=== PATIENT | female | born 1960 | race Caucasian/White ===

== ENCOUNTER 2016-09-20 15:56 | Emergency (ER) | payer MEDICARE ==
[2016-09-20 16:21] VITALS: BP 121/79
--- NOTE | 2016-09-20 17:00 | UC ---
Skin Complaint HPI - HPI Summary HPI Summary: Worried she has fleas/lice/scabies all over. Feels and sees little black bumps in her skin, is bathing several times per day, sometimes with caustic substances such as H2O2. Sees fleas all over house despite her dog being treated and not infested. Sometimes after she's been in a hot bath for a long time she gets out and sees fleas between her toes. Has seen her primary care provider, other providers, and [facility] start urgent care and feels no one is listening to her or believing her. Fell out of bed on 08/30/16 and sustained large hematoma to R oreilly which resulted in marked swelling and bruising down entire leg. Area is improving and bruising has resolved quite a bit, but is worried there are flea bites around it. - History of Current Complaint Chief Complaint: UCSkin Time Seen by Provider: 09/20/16 16:29 Stated Complaint: ITCHY SKIN Hx Obtained From: Patient Hx Last Menstrual Period: hysterectomy ?: No Onset/Duration: Gradual Onset, Still Present Timing: Constant Onset Severity: Moderate Current Severity: Moderate Character: Pruritus Alleviating: Antihistamines - only minimally helpful Associated Signs & Symptoms: Positive: Negative Related History: Insect Bite/Sting - fleas, scabies, lice - Allergy/Home Medications Allergies/Adverse Reactions: Allergies Allergy/AdvReac Type Severity Reaction Status Date / Time Aripiprazole [From Abilify] AdvReac Severe Dizziness Verified 09/20/16 16:22 Erythromycin AdvReac Severe Diarrhea Verified 09/20/16 16:22 Bupropion [From Wellbutrin] AdvReac Intermediate Hallucinati Verified 09/20/16 16:22 ons Levofloxacin [From Levaquin] AdvReac Intermediate Joint Pain Verified 09/20/16 16:22 Aspirin [From Ecotrin] AdvReac Mild See Comment Verified 09/20/16 16:22 Midazolam [From Versed] AdvReac SEVERE Verified 09/20/16 16:22 AGITATION NSAIDs AdvReac Bleeding Verified 09/20/16 16:22 Home Medications: Home Medications Multiple Vitamins W/ Minerals [Multivitamin] 09/20/16 [History] Review of Systems Constitutional: Negative Skin: Rash, Other - itching, bug sensation Eyes: Negative ENT: Negative Respiratory: Negative Cardiovascular: Negative Gastrointestinal: Negative Genitourinary: Negative Motor: Negative Neurovascular: Negative Musculoskeletal: Negative Neurological: Negative Psychological: Negative All Other Systems Reviewed And Are Negative: Yes PMH/Surg Hx/FS Hx/Imm Hx Endocrine History Of: Denies: Diabetes, Thyroid Disease Cardiovascular History Of: Reports: Hypertension - on meds Denies: Cardiac Disorders, Pacemaker/ICD Respiratory History Of: Denies: COPD, Asthma GI/ History Of: Reports: Gastroesophageal Reflux - gi bleed 2007/[facility] 2007 Denies: Ulcer, Renal Disease Neurological History Of: Reports: Migraine Psychological History Of: Reports: Anxiety, Depression Cancer History Of: Denies: Breast Cancer Other History Of: Negative For: Anticoagulant Therapy - Surgical History Surgical History: Yes Surgery Procedure, Year, and Place: 2006 Hysterectomy. 2-LAPROSCOPIC- ENDOMETRIOSIS. TONSILECTOMY-1968 - Family History Known Family History: Positive: Cardiac Disease, Hypertension, Other - positive anxiety to mother and sister - Social History Lives: Alone Alcohol Use: None Substance Use Type: None Substance Use Comment - Amount & Last Used: hydrocodone Smoking Status (MU): Never Smoked Tobacco Have You Smoked in the Last Year: No - Immunization History Most Recent Influenza Vaccination: season Physical Exam Triage Information Reviewed: Yes Appearance: Well-Appearing, No Pain Distress, Well-Nourished Vital Signs: Initial Vital Signs Temp 96 F 09/20/16 16:16 Pulse 79 09/20/16 16:16 Resp 16 09/20/16 16:16 BP 121/79 09/20/16 16:16 Pulse Ox 98 09/20/16 16:16 Vital Signs Reviewed: Yes Eye Exam: Normal Eyes: Positive: Conjunctiva Clear ENT Exam: Normal ENT: Positive: Normal ENT inspection, Hearing grossly normal, Pharynx normal, TMs normal Dental Exam: Normal Neck exam: Normal Neck: Positive: Supple, Nontender, No Lymphadenopathy Respiratory Exam: Normal Respiratory: Positive: Chest non-tender, Lungs clear, Normal breath sounds, No respiratory distress, No accessory muscle use Cardiovascular Exam: Normal Cardiovascular: Positive: RRR, No Murmur Musculoskeletal Exam: Normal Neurological Exam: Normal Psychological Exam: Normal Skin Exam: Other - multiple small excoriations, no papules, erythema, streaking , or drainage. Skin: Positive: significant lesion(s) - R oreilly resolving hematoma with linear scab in the middle of it; surrounded by post-inflammatory hyperpigmentation. Pt indicates seeing flea bites around it, no papules noted. Course/Dx - Diagnoses Provider Diagnoses: delusional parasitosis. pruritis. resolving hematoma R oreilly Discharge - Discharge Plan Condition: Stable Disposition: HOME Prescriptions: Permethrin [Elimite] 5 % TOPICAL BEDTIME #1 bottle Patient Education Materials: Itchy Skin (ED) Referrals: Linn Hui MD [Primary Care Provider] - Additional Instructions: As we discussed, I do not think you have scabies, lice, or any other infestation. You are exhibiting signs and symptoms of a fairly common disorder that originates in the brain, rather than the skin. We do not yet know the best way to treat this, other than to try and keep your itching at bay. I believe your sensation of itching and bites and crawling things has been sort of " turned up all the way" in your brain, and your normal human response of wanting to get them off is taking over. This is just as real as a pain disorder or someone whose nerves cannot move their muscles normally. Please discuss this with Dr. Hui further.
== END 2016-09-20 17:04 | disposition home or self-care (01) ==
LOC: UCEAST 15:56
DX: F22 Delusional disorders (principal); L29.9 Pruritus, unspecified; S80.11XD Contusion of right lower leg, subsequent encounter; W06.XXXD Fall from bed, subsequent encounter; I10 Essential (primary) hypertension; Z88.1 Allergy status to other antibiotic agents; Z88.6 Allergy status to analgesic agent; Z88.8 Allergy status to other drugs, medicaments and biological substances
CPT/HCPCS: 99212; G0463

== ENCOUNTER 2016-12-13 13:09 | Emergency (ER) | payer SELFPAY ==
[2016-12-13 14:09] VITALS: BP 143/86
--- NOTE | 2016-12-13 14:29 | UC ---
Back Pain HPI - HPI Summary HPI Summary: muscular pain in right lower back--after stretching to prevent an elder from falling - History of Current Complaint Chief Complaint: UCBackPain Stated Complaint: BACK INJURY Time Seen by Provider: 12/13/16 14:14 Hx Obtained From: Patient Hx Last Menstrual Period: HYSTERECTOMY ?: No Onset/Duration: Sudden Onset, Lasting Days - 2, Still Present Timing: Constant Severity Initially: Moderate Severity Currently: Moderate Pain Intensity: 6 Pain Scale Used: 0-10 Numeric Back Pain: Is Discrete @ - right side of lumar back Character: Aching, Spasmodic, Stiffness Aggravating: Movement, Lifting Alleviating: Nothing Associated Signs And Symptoms: Positive: Negative Related History: Previous Back Injury - Allergies/Home Medications Allergies/Adverse Reactions: Allergies Allergy/AdvReac Type Severity Reaction Status Date / Time Aripiprazole [From Abilify] AdvReac Severe Dizziness Verified 09/20/16 16:22 Erythromycin AdvReac Severe Diarrhea Verified 09/20/16 16:22 Bupropion [From Wellbutrin] AdvReac Intermediate Hallucinati Verified 09/20/16 16:22 ons Levofloxacin [From Levaquin] AdvReac Intermediate Joint Pain Verified 09/20/16 16:22 Aspirin [From Ecotrin] AdvReac Mild See Comment Verified 09/20/16 16:22 Midazolam [From Versed] AdvReac SEVERE Verified 09/20/16 16:22 AGITATION NSAIDs AdvReac Bleeding Verified 09/20/16 16:22 PMH/Surg Hx/FS Hx/Imm Hx Previously Healthy: No Endocrine History Of: Denies: Diabetes, Thyroid Disease Cardiovascular History Of: Reports: Hypertension - on meds Denies: Cardiac Disorders, Pacemaker/ICD Respiratory History Of: Denies: COPD, Asthma GI/ History Of: Reports: Gastroesophageal Reflux - gi bleed 2007/[facility] 2007 Denies: Ulcer, Renal Disease Neurological History Of: Reports: Migraine Psychological History Of: Reports: Anxiety, Depression Cancer History Of: Denies: Breast Cancer Other History Of: Negative For: Anticoagulant Therapy - Surgical History Surgical History: Yes Surgery Procedure, Year, and Place: 2005 Hysterectomy. 2-LAPROSCOPIC- ENDOMETRIOSIS. TONSILECTOMY-1968 - Family History Known Family History: Positive: Cardiac Disease, Hypertension, Other - positive anxiety to mother and sister - Social History Occupation: Employed Part-time Lives: Alone Alcohol Use: None Substance Use Type: None Substance Use Comment - Amount & Last Used: hydrocodone Smoking Status (MU): Never Smoked Tobacco Have You Smoked in the Last Year: No - Immunization History Most Recent Influenza Vaccination: season Review of Systems Constitutional: Negative Skin: Negative Eyes: Negative ENT: Negative Respiratory: Negative Cardiovascular: Negative Gastrointestinal: Negative Genitourinary: Negative Motor: Negative Neurovascular: Negative Musculoskeletal: Myalgia - right side of lower back Neurological: Negative Psychological: Negative All Other Systems Reviewed And Are Negative: Yes Physical Exam Triage Information Reviewed: Yes Appearance: Well-Appearing, No Pain Distress, Well-Nourished Vital Signs: Initial Vital Signs Temp 98.8 F 12/13/16 14:06 Pulse 99 12/13/16 14:06 Resp 16 12/13/16 14:06 BP 143/86 12/13/16 14:06 Pulse Ox 97 12/13/16 14:06 Vital Signs Reviewed: Yes Eye Exam: Normal Eyes: Positive: Conjunctiva Clear ENT Exam: Normal ENT: Positive: Normal ENT inspection, Hearing grossly normal. Negative: Nasal congestion, Nasal drainage, Trismus, Muffled/hoarse voice Neck exam: Normal Neck: Positive: Supple, Nontender Respiratory Exam: Normal Respiratory: Positive: Chest non-tender, Normal breath sounds, No respiratory distress, No accessory muscle use Cardiovascular Exam: Normal Cardiovascular: Positive: RRR, Pulses Normal, Brisk Capillary Refill Abdominal Exam: Normal Abdomen Description: Positive: Nontender, No Organomegaly, Soft Bowel Sounds: Positive: Present Musculoskeletal Exam: Normal Musculoskeletal: Positive: Strength Intact, ROM Intact, No Edema Neurological Exam: Normal Neurological: Positive: Alert, Muscle Tone Normal Psychological Exam: Normal Skin Exam: Normal Back Pain Course/Dx - Course Course Of Treatment: back exercise, pt has clonopin zanaflex and flexeril at home, tylenol, follow with pt or pcp - Differential Dx/Diagnosis Differential Diagnosis/HQI/PQRI: Fracture, Strain, Sprain Provider Diagnoses: Lumar muscle strain Discharge - Discharge Plan Condition: Stable Disposition: HOME Patient Education Materials: Acetaminophen (By mouth), Low Back Strain (ED), Core Strengthening Exercises (GEN), Lower Back Exercises (ED) Referrals: Linn Hui MD [Primary Care Provider] - 3 Days
== END 2016-12-13 14:40 | disposition home or self-care (01) ==
LOC: UCEAST 13:09
DX: S39.012A Strain of muscle, fascia and tendon of lower back, initial encounter (principal); X50.0XXA Overexertion from strenuous movement or load, initial encounter; I10 Essential (primary) hypertension; K21.9 Gastro-esophageal reflux disease without esophagitis; G43.909 Migraine, unspecified, not intractable, without status migrainosus; F41.9 Anxiety disorder, unspecified; F32.9 Major depressive disorder, single episode, unspecified; Z88.3 Allergy status to other anti-infective agents; Z88.6 Allergy status to analgesic agent
CPT/HCPCS: 99212; G0463

== ENCOUNTER 2017-05-23 11:54 | Emergency (ER) | payer MEDICARE ==
[2017-05-23 13:31] VITALS: BP 133/94
--- NOTE | 2017-05-23 14:00 | UC ---
Skin Complaint HPI - HPI Summary HPI Summary: 56 y/o female presents to the urgent care c/o waking up in the middle of the night with bug bites in her arms and back of her LF leg 2 days ago. That day she was at her friends house who told her she now has bed bugs. She states she also has had flees in her house 4X in the past. Now she has hives that itch a lot. Pt has been taking Benadryl PO. Pt denies fever, SOB, chest pain, N/V/D. - History of Current Complaint Chief Complaint: UCRash Time Seen by Provider: 05/23/17 13:31 Stated Complaint: RASH Hx Obtained From: Patient Hx Last Menstrual Period: HYSTERECTOMY ?: No Onset/Duration: Sudden Onset, Lasting Days - 2 days Skin Exposure Onset/Duration: Days Ago - 2 Timing: Constant Onset Severity: Moderate Current Severity: Moderate Pain Intensity: 0 Pain Scale Used: 0-10 Numeric Location: Discrete - B/l arms and back of her LF knee Character: Swelling, Pruritus, Redness Alleviating: OTC Meds, Antihistamines - benadryl Associated Signs & Symptoms: Negative: Nausea, Vomiting, Numbness, Fever, Chills , Tenderness, Red Streaks Related History: Possible Reaction to: Insect - Allergy/Home Medications Allergies/Adverse Reactions: Allergies Allergy/AdvReac Type Severity Reaction Status Date / Time Aripiprazole [From Abilify] AdvReac Severe Dizziness Verified 05/23/17 13:31 Erythromycin AdvReac Severe Diarrhea Verified 05/23/17 13:31 Bupropion [From Wellbutrin] AdvReac Intermediate Hallucinati Verified 05/23/17 13:31 ons Levofloxacin [From Levaquin] AdvReac Intermediate Joint Pain Verified 05/23/17 13:31 Aspirin [From Ecotrin] AdvReac Mild See Comment Verified 05/23/17 13:31 Midazolam [From Versed] AdvReac SEVERE Verified 05/23/17 13:31 AGITATION NSAIDs AdvReac Bleeding Verified 05/23/17 13:31 pepper Allergy Hives/Diff. Uncoded 05/23/17 13:32 Breathing/I tching Review of Systems Constitutional: Negative Skin: Rash - red with swelling on both arms and back of LF knee Eyes: Negative ENT: Negative Respiratory: Negative Cardiovascular: Negative Gastrointestinal: Negative Genitourinary: Negative Motor: Negative Neurovascular: Negative Musculoskeletal: Negative Neurological: Negative Psychological: Negative Is Patient Immunocompromised?: No All Other Systems Reviewed And Are Negative: Yes PMH/Surg Hx/FS Hx/Imm Hx Previously Healthy: Yes Cardiovascular History: Hypertension GI/ History: Gastroesophageal Reflux Neurological History: Migraine Psychological History: Bipolar Disorder Other History Of: Negative For: Anticoagulant Therapy - Surgical History Surgical History: Yes Surgery Procedure, Year, and Place: 2006 Hysterectomy. 2-LAPROSCOPIC- ENDOMETRIOSIS. TONSILECTOMY-1968 - Family History Known Family History: Positive: Cardiac Disease, Hypertension Family History: anxiety, COPD - Social History Occupation: Employed Full-time Lives: With Family Alcohol Use: None Substance Use Type: None Substance Use Comment - Amount & Last Used: hydrocodone Smoking Status (MU): Never Smoked Tobacco Have You Smoked in the Last Year: No - Immunization History Most Recent Influenza Vaccination: Physical Exam Triage Information Reviewed: Yes Appearance: Well-Appearing, No Pain Distress, Well-Nourished, Obese Vital Signs: Initial Vital Signs Temp 97.9 F 05/23/17 13:27 Pulse 101 05/23/17 13:27 Resp 16 05/23/17 13:27 BP 133/94 05/23/17 13:27 Pulse Ox 97 05/23/17 13:27 Vital Signs Reviewed: Yes Eye Exam: Normal Eyes: Positive: Conjunctiva Clear - PERRLA, EOMI ENT Exam: Normal ENT: Positive: Normal ENT inspection, Hearing grossly normal, Pharynx normal, TMs normal Neck exam: Normal Neck: Positive: Supple, Nontender, No Lymphadenopathy Respiratory Exam: Normal Respiratory: Positive: Chest non-tender, Lungs clear, Normal breath sounds Cardiovascular Exam: Normal Cardiovascular: Positive: RRR, No Murmur, Pulses Normal, Brisk Capillary Refill Abdominal Exam: Normal Abdomen Description: Positive: Nontender, No Organomegaly, Soft. Negative: CVA Tenderness (R), CVA Tenderness (L) Bowel Sounds: Positive: Present Musculoskeletal Exam: Normal Musculoskeletal: Positive: Strength Intact, ROM Intact, No Edema Neurological Exam: Normal Psychological Exam: Normal Skin: Positive: rashes - B/L arms with irregular erythematous swollen papules about 1-2mm is siize arrange in an irregular linear pattern. non tender to palpation. similar eruption on back of LF knee. Course/Dx - Course Course Of Treatment: 56 y/o female presents to the urgent care c/o waking up in the middle of the night with bug bites in her arms and back of her LF leg 2 days ago. That day she was in her friends house who told her she now has bed bugs. She states she also has had flees in her house 4X in the past. Now she has hives that itch a lot. Pt has been taking Benadryl PO. Pt denies fever, SOB , chest pain, N/V/D. HX obtained. On examination most likely bed bugs. Pt advised to take Hydroxyzine PO 25mg PO she has at home to allaviate pruritus and Rx Triamcinolone topical cream for affected areas. Educated on Bed bugs and given information in how to erradicated them from her house. Advised If symptoms do not improve or worsen please return to the urgent cares or your PCP for further evaluation and treatment. Pt understood and agreed with plan of care. - Differential Diagnoses - Skin Complaint Differential Diagnoses: Allergic Reaction, Eczema, Local Allergic Reaction, Lymphadenitis, Scabies, Tick Born Illness, Tinea, Urticaria, Other - Bed bugs - Diagnoses Provider Diagnoses: 1- Acute rash Discharge - Discharge Plan Condition: Stable Disposition: HOME Prescriptions: Triamcinolone 0.1% CREAM(NF) [Kenalog Cream 0.1%(NF)] 1 applic TOPICAL BID #1 tube Patient Education Materials: Bed Bugs (ED) Referrals: Linn Hui MD [Primary Care Provider] - If Needed Additional Instructions: 1- Please continue taking Hydroxyzine PO 25mg PO q6-8hrs prn you have at home to help with pruritus 2- Apply Triamcinolone topical creas as directed on affected areas. 3- If symptoms do not improve or worsen please return to the urgent cares or your PCP for further evaluation and treatment What are bedbugs? Bedbugs are small bugs that do not fly . They are found all over the world. Bedbugs can live in hotels, houses, and other places where people rest and sleep. They can live in your mattress, your clothes, the gu, and other parts of your house. Most often, they bite you while you are sleeping or resting. If you have bedbugs in your home, you might not be able to see them. They are very small and hide during the day. Bedbugs do not spread diseases in people. What do bedbug bites look like? Bedbug bites are small, red and swollen areas of the skin that are often: -In a row or a line -On parts of the body not usually covered by clothes, such as the face, neck, arms, and hands -Very itchy Most people don't feel it when they get bitten. They might notice the bites in the morning or after a day or 2. Bedbug bites can take 3 to 6 weeks to heal. They can get infected if you scratch them a lot. Is there a test to tell if I have bedbug bites? No. There is no test. But your doctor or nurse might suspect that your bites are from bedbugs when he or she looks at your skin. Other types of bugs and some diseases can also cause red bumps on the skin that look like bedbug bites. The only way to know for sure if you have bedbugs in your home is to catch one. Your doctor or nurse can then inspect the insect. They can tell if it is a bedbug or another type of bug. Is there anything I can do on my own to help my bites feel better? Yes. To help your bites feel better and heal faster, you can: -Keep the skin clean and dry -Try not to scratch the bites -Use an anti-itch lotion or cream to help with the itching Should I see a doctor or nurse? See your doctor or nurse right away if the bites: -Get redder -Get more swollen -Start having pus come out of them If any of these things happen, your bites might be infected. Your doctor or nurse might prescribe medicine for the infection. When you first find out you have bedbugs in your home, you might feel very worried or upset. If you feel this way, talk to your doctor about what you can do. What should I do about the bedbugs in my home? You will need to get rid of the bedbugs in your home so you do not get any more bites. To start, you can: -Vacuum your home -Wash your clothes and bedding, and dry them in a dryer that is on the hottest setting -Clean up your home Then, you or your landlord should call a pest control service. The workers might use a chemical in your home to get rid of the bedbugs. You should not try to use any chemicals yourself. Another way that pest control services can get rid of bedbugs is a special type of heat treatment. This raises the temperature in your home, which kills the bedbugs. If you want to get rid of some of your clothes or things, do not give them to other people. The bedbugs could still be in them. You do not want to spread bedbugs to other people. Can bedbug bites be prevented? The only way to prevent bites is by getting
== END 2017-05-23 14:10 | disposition home or self-care (01) ==
LOC: UCEAST 11:54
DX: R21 Rash and other nonspecific skin eruption (principal); I10 Essential (primary) hypertension; K21.9 Gastro-esophageal reflux disease without esophagitis; G43.909 Migraine, unspecified, not intractable, without status migrainosus; E66.9 Obesity, unspecified; F31.9 Bipolar disorder, unspecified; Z90.710 Acquired absence of both cervix and uterus; Z88.6 Allergy status to analgesic agent; Z88.1 Allergy status to other antibiotic agents; Z88.8 Allergy status to other drugs, medicaments and biological substances
CPT/HCPCS: 99212; G0463

== ENCOUNTER 2017-08-08 15:15 | Emergency (ER) | payer MEDICARE ==
[2017-08-08 15:44] VITALS: BP 117/85
--- NOTE | 2017-08-08 18:20 | ED ---
Wilton Rodríguez Stephanie, scribed for Cresencio Tian MD on 08/08/17 at 1820 . Skin Complaint - HPI Summary HPI Summary: Pt is a 56 y/o F with itching flea bites that began 2 years ago. Pt thought the fleas came from her dog but the dog was evaluated by a program specialist and had no fleas. She complains of seeing fleas in her apartment and on increasingly itching bites over the past week. Pt complains of bites on her abdomen, upper back and neck and notes that the bumps on her back have been present for 35 years. She was taking Hydroxyzine and then switched to Benadryl. - History of Current Complaint Chief Complaint: UCRash Time Seen by Provider: 08/08/17 16:21 Stated Complaint: RASH Hx Obtained From: Patient Hx Last Menstrual Period: HYSTERECTOMY Onset/Duration: Started Weeks Ago - 2 years, Still Present Timing: Constant Current Severity: Moderate Skin Location: Discrete - upper extremity, back, and neck, Neck - posterior, Abdomen Aggravating Symptom(s): Nothing Alleviating Symptom(s): Nothing - Allergy/Home Medications Allergies/Adverse Reactions: Allergies Allergy/AdvReac Type Severity Reaction Status Date / Time Aripiprazole [From Abilify] AdvReac Severe Dizziness Verified 08/08/17 15:44 Erythromycin AdvReac Severe Diarrhea Verified 08/08/17 15:44 Bupropion [From Wellbutrin] AdvReac Intermediate Hallucinati Verified 08/08/17 15:44 ons Levofloxacin [From Levaquin] AdvReac Intermediate Joint Pain Verified 08/08/17 15:44 Aspirin [From Ecotrin] AdvReac Mild See Comment Verified 08/08/17 15:44 Midazolam [From Versed] AdvReac SEVERE Verified 08/08/17 15:44 AGITATION NSAIDs AdvReac Bleeding Verified 08/08/17 15:44 pepper Allergy Hives/Diff. Uncoded 08/08/17 15:44 Breathing/I tching PMH/Surg Hx/FS Hx/Imm Hx Endocrine/Hematology History: Denies: Hx Anticoagulant Therapy, Hx Diabetes, Hx Thyroid Disease Cardiovascular History: Reports: Hx Hypertension - on meds Denies: Hx Pacemaker/ICD Respiratory History: Reports: Hx Sleep Apnea Denies: Hx Asthma, Hx Chronic Obstructive Pulmonary Disease (COPD) GI History: Reports: Hx Irritable Bowel, Other GI Disorders - gi bleed Denies: Hx Ulcer History: Denies: Hx Renal Disease Musculoskeletal History: Reports: Hx Arthritis - osteo, Hx Scoliosis Sensory History: Reports: Hx Contacts or Glasses Denies: Hx Hearing Aid Opthamlomology History: Reports: Hx Contacts or Glasses Neurological History: Reports: Hx Headaches, Hx Migraine, Other Neuro Impairments/Disorders - PAIN CLINIC INJECTIONS Psychiatric History: Reports: Hx Anxiety, Hx Depression, Hx Panic Disorder, Hx Community Mental Health Tx, Hx Substance Abuse - NSIADS for pain, Other Psychiatric Issues/Disorders - 2005 rehab-tramadol & alcohol - Cancer History Hx Chemotherapy: No Hx Radiation Therapy: No - Surgical History Surgery Procedure, Year, and Place: 2005 Hysterectomy. 2-LAPROSCOPIC- ENDOMETRIOSIS. TONSILECTOMY-1968 Infectious Disease History: No Infectious Disease History: Denies: Hx Clostridium Difficile, Hx Hepatitis, Hx Human Immunodeficiency Virus (HIV), Hx of Known/Suspected MRSA, Hx Shingles, Hx Tuberculosis, Hx Known/ Suspected VRE, Hx Known/Suspected VRSA, History Other Infectious Disease, Traveled Outside the [place] in Last 30 Days - Family History Known Family History: Positive: Cardiac Disease, Hypertension, Other - positive anxiety to mother and sister Family History: anxiety, COPD - Social History Alcohol Use: None Hx Substance Use: No Substance Use Type: Reports: None Substance Use Comment - Amount & Last Used: hydrocodone Hx Tobacco Use: No Smoking Status (MU): Never Smoked Tobacco Have You Smoked in the Last Year: No Review of Systems Positive: Other - skin itching. Negative: Fever Positive: Other - punctate erythematous areas All Other Systems Reviewed And Are Negative: Yes Physical Exam - Summary Physical Exam Summary: General: well-appearing, no pain distress Skin: warm, punctate erythematous areas thinly scattered on forearms, abdomen and back. Signs of excoriation. , dry Head: normal Eyes: EOMI, MELISSA ENT: normal Neck: supple, nontender Respiratory: CTA, breath sounds present Cardiovascular: RRR Abdomen: soft, nontender Bowel: present Musculoskeletal: normal, strength/ROM intact Neurological: normal, sensory/motor intact, A&O x3 Psychological: affect/mood appropriate Triage Information Reviewed: Yes Vital Signs On Initial Exam: Initial Vitals Temp Pulse Resp BP Pulse Ox 97.7 F 106 18 117/85 99 08/08/17 15:36 08/08/17 15:36 08/08/17 15:36 08/08/17 15:36 08/08/17 15:36 Vital Signs Reviewed: Yes Diagnostics - Vital Signs Vital Signs Temp Pulse Resp BP Pulse Ox 08/08/17 15:36 97.7 F 106 18 117/85 99 - Laboratory Lab Statement: Any lab studies that have been ordered have been reviewed, and results considered in the medical decision making process. Course/Dx - Diagnoses Provider Diagnoses: Pruritic rash Discharge - Discharge Plan Condition: Stable Disposition: HOME Prescriptions: hydrOXYzine HCL TAB* [Atarax 25 MG TAB*] 25 mg PO QID PRN #30 tab PRN Reason: Itching Methylprednisolone [Medrol Dosepak 4 MG*] 4 mg PO .SEE PHILIP INSTRUCTION #1 philip Triamcinolone 0.1% CREAM (NF) [Kenalog 0.1% Cream (NF)] 1 applic .SEE ORDER BID PRN #1 tube PRN Reason: Itching Patient Education Materials: Acute Rash (ED) Referrals: Linn Hui MD [Medical Doctor] - Additional Instructions: FOLLOW UP WITH YOUR DOCTOR. GET RECHECKED FOR ANY WORSENING OF YOUR CONDITION OR QUESTIONS OR CONCERNS. The documentation as recorded by the Wilton betancourt Stephanie accurately reflects the service I personally performed and the decisions made by me, Cresencio Tian MD.
== END 2017-08-08 17:07 | disposition home or self-care (01) ==
LOC: UCEAST 15:15
DX: L29.9 Pruritus, unspecified (principal)
CPT/HCPCS: 99212; G0463

== ENCOUNTER 2017-11-27 12:56 | Emergency (ER) | payer MEDICARE ==
[2017-11-27 13:10] VITALS: BP 140/96
--- NOTE | 2017-11-27 14:21 | UC ---
Back Pain HPI - HPI Summary HPI Summary: Acute exacerbation of chronic back pain---has had pain for 2 weeks---no numbness or tingling in extremities - History of Current Complaint Hx Obtained From: Patient Hx Last Menstrual Period: HYSTERECTOMY Onset/Duration: Sudden Onset, Lasting Weeks - 2, Still Present Timing: Constant Severity Initially: Moderate Severity Currently: Moderate Pain Intensity: 6 Pain Scale Used: 0-10 Numeric Back Pain: Is Diffuse Character: Spasmodic, Stiffness Aggravating Factor(s): Movement, Lifting, Bending Alleviating Factor(s): Nothing Associated Signs And Symptoms: Positive: Negative <Yadira Evans - Last Filed: 11/27/17 14:42> <Betsy Randhawa - Last Filed: 11/27/17 18:04> - History of Current Complaint Chief Complaint: UCBackPain Stated Complaint: BACK PAIN Time Seen by Provider: 11/27/17 14:06 - Allergies/Home Medications Allergies/Adverse Reactions: Allergies Allergy/AdvReac Type Severity Reaction Status Date / Time aripiprazole [From Abilify] Allergy Dizziness Verified 11/27/17 13:13 aspirin Allergy Bleeding Verified 11/27/17 13:13 bupropion [From Wellbutrin] Allergy Hallucinati Verified 11/27/17 13:13 ons erythromycin base Allergy Diarrhea Verified 11/27/17 13:13 levofloxacin [From Levaquin] Allergy Joint Pain Verified 11/27/17 13:13 midazolam [From Versed] Allergy See Comment Verified 11/27/17 13:13 NSAIDS (Non-Steroidal Allergy Bleeding Verified 11/27/17 13:13 Anti-Inflamma pepper Allergy Difficulty Verified 11/27/17 13:13 Breathing pepper Allergy Hives/Diff. Uncoded 11/27/17 13:13 Breathing/I tching PMH/Surg Hx/FS Hx/Imm Hx Previously Healthy: No - chronic back pain GI/ History: Gastroesophageal Reflux Psychological History: Bipolar Disorder Other History Of: Negative For: Anticoagulant Therapy - Surgical History Surgical History: Yes Surgery Procedure, Year, and Place: 2005 Hysterectomy. 2-LAPROSCOPIC- ENDOMETRIOSIS. TONSILECTOMY-1968 - Family History Known Family History: Positive: Cardiac Disease, Hypertension, Other - positive anxiety to mother and sister Family History: anxiety, COPD - Social History Occupation: Disabled Lives: Alone Alcohol Use: None Substance Use Type: None Substance Use Comment - Amount & Last Used: hydrocodone Smoking Status (MU): Never Smoked Tobacco Have You Smoked in the Last Year: No - Immunization History Most Recent Influenza Vaccination: season <Yadira Evans - Last Filed: 11/27/17 14:42> Review of Systems Constitutional: Negative Skin: Negative Eyes: Negative ENT: Negative Respiratory: Negative Cardiovascular: Negative Gastrointestinal: Negative Genitourinary: Negative Motor: Negative Neurovascular: Negative Musculoskeletal: Arthralgia, Myalgia - pain Neurological: Negative Psychological: Negative Is Patient Immunocompromised?: No All Other Systems Reviewed And Are Negative: Yes <Yadira Evans - Last Filed: 11/27/17 14:42> Physical Exam Triage Information Reviewed: Yes Appearance: Well-Appearing, No Pain Distress, Obese Vital Signs: Initial Vital Signs Temp 97.8 F 11/27/17 13:03 Pulse 103 11/27/17 13:03 Resp 18 11/27/17 13:03 BP 140/96 11/27/17 13:03 Pulse Ox 97 11/27/17 13:03 Vital Signs Reviewed: Yes Eye Exam: Normal Eyes: Positive: Conjunctiva Clear ENT Exam: Normal ENT: Positive: Normal ENT inspection, Hearing grossly normal, Pharynx normal. Negative: Nasal congestion, Trismus, Muffled voice, Hoarse voice, Dental tenderness, Sinus tenderness Dental Exam: Normal Neck exam: Normal Neck: Positive: Supple, Nontender, No Lymphadenopathy Respiratory Exam: Normal Respiratory: Positive: Chest non-tender, Lungs clear, No accessory muscle use Cardiovascular Exam: Normal Cardiovascular: Positive: Pulses Normal, Brisk Capillary Refill Musculoskeletal Exam: Normal Musculoskeletal: Positive: Strength Intact, ROM Intact, No Edema Neurological Exam: Normal Neurological: Positive: Alert, Muscle Tone Normal Psychological Exam: Normal Skin Exam: Normal <Yadira Evans - Last Filed: 11/27/17 14:42> Vital Signs: Initial Vital Signs Temp 97.8 F 11/27/17 13:03 Pulse 103 11/27/17 13:03 Resp 18 11/27/17 13:03 BP 140/96 11/27/17 13:03 Pulse Ox 97 11/27/17 13:03 <Betsy Randhawa - Last Filed: 11/27/17 18:04> Back Pain Course/Dx - Course Course Of Treatment: physical therapy referral, medrol dose back, follow with pcp - Differential Dx/Diagnosis Provider Diagnoses: elevated blood pressure with dx of hypertension, acute on chronic back pain, muscle spasm <Yadira Evans - Last Filed: 11/27/17 14:42> Discharge - Sign-Out/Discharge Documenting (check all that apply): Discharge - Billing Disposition and Condition Condition: STABLE Disposition: HOME <Yadira Evans - Last Filed: 11/27/17 14:42> - Billing Disposition and Condition Condition: STABLE Disposition: HOME <Betsy Randhawa - Last Filed: 11/27/17 18:04> - Discharge Plan Condition: Stable Disposition: HOME Prescriptions: methylPREDNISolone [Medrol] 4 mg PO .SEE PHILIP INSTRUCTION #1 philip Patient Education Materials: Hypertension (ED), Muscle Spasm (ED), Chronic Back Pain (ED), Core Strengthening Exercises (GEN) Referrals: [facility] [place] PHYSICIAN REFERRAL [Outside] - 1 Week Attestation Statement User Type: Provider - I was available for consult. This patient was seen by the CHARMAINE. The patient was not presented to, seen by, or examined by me. Tabatha <Betsy Randhawa - Last Filed: 11/27/17 18:04>
== END 2017-11-27 14:50 | disposition home or self-care (01) ==
LOC: UCEAST 12:56
DX: M54.9 Dorsalgia, unspecified (principal); G89.29 Other chronic pain; R03.0 Elevated blood-pressure reading, without diagnosis of hypertension; Z88.6 Allergy status to analgesic agent; Z88.3 Allergy status to other anti-infective agents; Z88.8 Allergy status to other drugs, medicaments and biological substances
CPT/HCPCS: 99212; G0463

== ENCOUNTER 2017-12-05 19:47 | Emergency (ER) | payer MEDICARE ==
[2017-12-05 19:56] VITALS: BP 152/96
[2017-12-05] MEDS ORDERED: Cyclobenzaprine TAB* 10 MG PO ONE (20:11)
[2017-12-05] MEDS ORDERED: traMADol TAB* 50 MG PO ONE (20:11)
--- NOTE | 2017-12-05 20:43 | ED ---
Kamar Rodríguez Julia, scribed for Teodoro Coto MD on 12/05/17 at 1959 . Back Pain - HPI Summary HPI Summary: This patient is a 57 year old F presenting to [facility] with a chief complaint of constant generalized back pain radiating into pelvis and legs for the past two weeks after lifting box off a shelf. Patient reports lower extremity weakness. Patient denies urinary symptoms. The patient rates the pain 6/10 in severity. Symptoms aggravated by reaching up and walking. Pt was seen in urgent care a week ago for similar symptoms but has not improved since then.Pt was given Medrol pack. Pt has hx of back pain at baseline. Pt is seen by Dr. Hui. - History of Current Complaint Chief Complaint: EDBackInjuryPain Stated Complaint: BACK PAIN Time Seen by Provider: 12/05/17 19:57 Hx Obtained From: Patient Hx Last Menstrual Period: HYSTERECTOMY Onset/Duration: Lasting Weeks, Still Present Onset/Duration: Started Weeks Ago Back Pain Location: Is Diffuse Pain Intensity: 6 Pain Scale Used: 0-10 Numeric Aggravating Symptom(s): Lifting, Walking Related History: Similar Episode Dx As - chronic back pain - Allergies/Home Medications Allergies/Adverse Reactions: Allergies Allergy/AdvReac Type Severity Reaction Status Date / Time aripiprazole [From Abilify] Allergy Dizziness Verified 11/27/17 13:13 aspirin Allergy Bleeding Verified 11/27/17 13:13 bupropion [From Wellbutrin] Allergy Hallucinati Verified 11/27/17 13:13 ons erythromycin base Allergy Diarrhea Verified 11/27/17 13:13 levofloxacin [From Levaquin] Allergy Joint Pain Verified 11/27/17 13:13 midazolam [From Versed] Allergy See Comment Verified 11/27/17 13:13 NSAIDS (Non-Steroidal Allergy Bleeding Verified 11/27/17 13:13 Anti-Inflamma pepper Allergy Difficulty Verified 11/27/17 13:13 Breathing pepper Allergy Hives/Diff. Uncoded 11/27/17 13:13 Breathing/I tching PMH/Surg Hx/FS Hx/Imm Hx Endocrine/Hematology History: Denies: Hx Anticoagulant Therapy, Hx Diabetes, Hx Thyroid Disease Cardiovascular History: Reports: Hx Hypertension - on meds Denies: Hx Pacemaker/ICD Respiratory History: Reports: Hx Sleep Apnea Denies: Hx Asthma, Hx Chronic Obstructive Pulmonary Disease (COPD) GI History: Reports: Hx Irritable Bowel, Other GI Disorders - gi bleed Denies: Hx Ulcer History: Denies: Hx Renal Disease Musculoskeletal History: Reports: Hx Arthritis - osteo, Hx Back Problems, Hx Scoliosis Sensory History: Reports: Hx Contacts or Glasses Denies: Hx Hearing Aid Opthamlomology History: Reports: Hx Contacts or Glasses Neurological History: Reports: Hx Headaches, Hx Migraine, Other Neuro Impairments/Disorders - PAIN CLINIC INJECTIONS Psychiatric History: Reports: Hx Anxiety, Hx Depression, Hx Panic Disorder, Hx Community Mental Health Tx, Hx Substance Abuse - NSIADS for pain, Other Psychiatric Issues/Disorders - 2005 rehab-tramadol & alcohol - Cancer History Hx Chemotherapy: No Hx Radiation Therapy: No - Surgical History Surgery Procedure, Year, and Place: 2005 Hysterectomy. 2-LAPROSCOPIC- ENDOMETRIOSIS. TONSILECTOMY-1968 Infectious Disease History: No Infectious Disease History: Denies: Hx Clostridium Difficile, Hx Hepatitis, Hx Human Immunodeficiency Virus (HIV), Hx of Known/Suspected MRSA, Hx Shingles, Hx Tuberculosis, Hx Known/ Suspected VRE, Hx Known/Suspected VRSA, History Other Infectious Disease, Traveled Outside the [place] in Last 30 Days - Family History Known Family History: Positive: Cardiac Disease, Hypertension, Other - positive anxiety to mother and sister Family History: anxiety, COPD - Social History Alcohol Use: None Hx Substance Use: No Substance Use Type: Reports: None Substance Use Comment - Amount & Last Used: hydrocodone Hx Tobacco Use: No Smoking Status (MU): Never Smoked Tobacco Have You Smoked in the Last Year: No Review of Systems Positive: no symptoms reported Positive: Myalgia All Other Systems Reviewed And Are Negative: Yes Physical Exam - Summary Physical Exam Summary: VITAL SIGNS: Reviewed. GENERAL: Patient is a well-developed and nourished female who is lying comfortable in the stretcher. Patient is not in any acute respiratory distress. HEAD AND FACE: No signs of trauma. No ecchymosis, hematomas or skull depressions. No sinus tenderness. EYES: PERRLA, EOMI x 2, No injected conjunctiva, no nystagmus. EARS: Hearing grossly intact. Ear canals and tympanic membranes are within normal limits. MOUTH: Oropharynx within normal limits. NECK: Supple, trachea is midline, no adenopathy, no JVD, no carotid bruit, no c- spine tenderness, neck with full ROM. CHEST: Symmetric, no tenderness at palpation LUNGS: Clear to auscultation bilaterally. No wheezing or crackles. CVS: Regular rate and rhythm, S1 and S2 present, no murmurs or gallops appreciated. ABDOMEN: Soft, non-tender. No signs of distention. No rebound no guarding, and no masses palpated. Bowel sounds are normal. EXTREMITIES:, no edema, no cyanosis or clubbing. Bilateral straight leg raise of 20 degrees, pt ambulates with steady gait without pain or limp NEURO: Alert and oriented x 3. No acute neurological deficits. Speech is normal and follows commands. SKIN: Dry and warm Triage Information Reviewed: Yes Vital Signs On Initial Exam: Initial Vitals Temp Pulse Resp BP Pulse Ox 97.1 F 90 16 152/96 96 12/05/17 19:50 12/05/17 19:50 12/05/17 19:50 12/05/17 19:50 12/05/17 19:50 Vital Signs Reviewed: Yes Diagnostics - Vital Signs Vital Signs Temp Pulse Resp BP Pulse Ox 12/05/17 19:50 97.1 F 90 16 152/96 96 - Laboratory Lab Statement: Any lab studies that have been ordered have been reviewed, and results considered in the medical decision making process. Re-Evaluation - Re-Evaluation 1 Re-Evaluation Time: 20:25 Comment: Pt informed of discharge. Back Pain Course/Dx - Course Course Of Treatment: Pt presents with back pain for the past two weeks. Pt has hx of chronic back pain. Pt given Flexeril and Tramadol. Pt is requesting prescription fro Tramadol. She states she cannot take NSAIDS because of Von Willebrand's dz. Patient ambulated with steady gait while in ED without pain. - Diagnoses Provider Diagnoses: Back pain Discharge - Sign-Out/Discharge Documenting (check all that apply): Discharge - Discharge Plan Condition: Stable Disposition: HOME Prescriptions: Cyclobenzaprine TAB* [Flexeril 10 MG TAB*] 10 mg PO TID PRN #20 tab PRN Reason: Spasms - Back Patient Education Materials: Back Pain (ED) Referrals: Linn Hui MD [Medical Doctor] - If Needed (Follow up with Dr. Hui.) The documentation as recorded by the Kamar betancourt Julia accurately reflects the service I personally performed and the decisions made by Nnamdi pacheco Abdul, MD.
== END 2017-12-05 20:37 | disposition home or self-care (01) ==
LOC: ED 19:47
DX: M54.9 Dorsalgia, unspecified (principal); I10 Essential (primary) hypertension; G47.30 Sleep apnea, unspecified; Z79.899 Other long term (current) drug therapy; Z88.1 Allergy status to other antibiotic agents; Z88.8 Allergy status to other drugs, medicaments and biological substances
CPT/HCPCS: 99282; A9270-GY

== ENCOUNTER 2017-12-26 17:43 | Emergency (ER) | payer MEDICARE ==
--- OUTSIDE RECORDS SUMMARY | 2017-12-26 18:14 | XMS REPORT ---
:1960 External Reference #:[id number] Author Organization [facility] [employer] [facility] Address [address] [address] Phone [phone] Care Team Providers Name Role Phone Linn Hui MD Primary Care Physician Unavailable Payers Type Date Identification Numbers Payment Provider Subscriber Medicare Primary Effective: Policy Number: Medicare Genna Hernandez 2015 [id number] PayID: [id number] [address] [place] [address] Medigap Part B Expires: 2016 Policy Number: Medicaid Genna Hernandez [id number] Group Name: 2 1 [address] PayID: [id number] [place] [address] Medigap Part B Expires: 2013 Policy Number: Medicaid Genna Hernandez [id number] Group Name: 1 1 [address] PayID: [id number] [place] [address] Problems Date Description Provider Status Onset: 09/10/2013 Migraine Linn Hui M.D. Active Onset: 09/10/2013 Depressive disorder Linn Hui M.D. Active Onset: 01/08/2015 Essential hypertension Linn Hui M.D. Active Onset: 05/31/2017 Obstructive sleep apnea syndrome Delaney Garcia DNP, RN, Active [employer] Onset: 05/31/2017 Hypersomnia Delaney Garcia DNP, RN, Active [employer] Family History Date Family Member(s) Problem(s) Comments Father due to Pneumonia () - Had fallen, had cracked ribs : (age Mother due to Sudden attributed to [place] 69 Years) poisoning, undiagnosed pain problems, memory problem, also osteoporosis, hip fracture Paternal Grandfather due to Emphysema () Paternal Grandmother due to () Complications of hip surgery Maternal Grandfather due to () - heart Parkinsons Disease valve replacement Maternal Grandmother due to () Parkinsons Disease Social History Type Date Description Comments Education Law school Marital Status Single from ex-partner Lives With Alone partial custody of her younger child Work Status Not Currently Working ETOH Use Denies alcohol use Recreational Drug Use Denies Drug Use Smoking Patient is a former smoker Daily Caffeine Consumes on average 2 cups of regular coffee per day Daily Caffeine Consumes on average 1 soda per day Exercise Type/Frequency Exercises regularly Exercise Type/Frequency Walking Walks dog 3x dayDocument: 05/31/17 - Sleep Consult Sexual Hx text SSP, last male contact in 1982 Allergies, Adverse Reactions, Alerts Date Description Reaction Status Severity Comments 12/02/2012 Wellbutrin active 12/02/2012 Levaquin active 12/02/2012 Erythromycin severe diarrhea, nausea active 12/02/2012 Abilify active 04/11/2014 Versed paradoxical active 04/11/2014 NSAIDs hx of gi bleed active 07/26/2014 Suboxone Hallucinations active 01/03/2016 Aspirin active 03/18/2017 Yellow Pepper Urticaria active Hives, itchy in mouth all over body Medications Medication Date Status Form Strength Qnty SIG Indications Ordering Provider Methocarbamol 12/21 Active Tablets 750mg 60tab 1-2 up to M54.9 s four Micky Hui times a day as needed Fluticasone 10/19 Active Suspension 50mcg/Act 48gm 2 intranasa Micky Hui l puffs to each nostril daily Hydrocodone-Acet 10/01 Active Tablets 5-325mg 24tab 1 by Wale aminorenny vandana Phelps M.D. twice a day as needed migraine max 3 days a week. Hydroxyzine HCL 09/20 Active Tablets 25mg 60tab 1 tablet s 4 times a Micky Hui day as needed for itching Hydrocortisone 06/08 Active Cream 2.5% 90gm apply to S00.06xA affected Micky Hui area twice daily Ankle Stirrup 04/20 Active Misc 1unit for daily M25.571 Linn Brace/Air s use Micky Hui Pads/Right Lidocaine HCL 01/02 Active Gel 2% 30ml apply to M54.5 affected Varn, N.P. area 3 - 4 times daily as needed Lomotil 11/30 Active Tablets 2.5-0.025 45tab 1- 2 mg s tablets Micky Hui every 6 hours as needed Proair HFA 04/17 Active Aerosol 108(90Bas 1unit 2 puffs 4 995.3 e) s times Micky Hui mcg/Act daily as needed (pt states has not used in a long time) Topiramate 03/29 Active Tablets 100mg 180ta Take 2 bs Tablets Stackman, By Mouth M.DYvon At Bedtime Norvasc 07/12 Active Tablets 5mg 90tab take one s tablet by Micky Hui mouth one time daily Ondansetron 05/11 Active Tablets 8mg 30tab dissolve Dispers s one Stackman, tablet in M.D. mouth twice daily as needed Singulair 04/11 Active Tablets 10mg 30tab take one s tablet by Micky Hui mouth one time daily Amitriptyline 01/09 Active Tablets 100mg 90tab 1 tab by Sharlene Villafana s mouth Stack[place], every M.D. night at bedtime Effexor XR Active Caps ER 150mg 90cap 2 po qd Kooperman, /0000 24HR s Valentina, MECH[employer] REPAIR WORKER Lamictal Active Tablets 200mg 60tab 1 PO qd Kooperman, / s Valentina, MECH[employer]ICAL REPAIR WORKER Trazodone HCL Active Tablets 100mg 30tab 1 -2 po Kooperman, / s qhs prn KEILA Montgomery Klonopin Active Tablets 1mg 1/2 tab Kooperman, / po bid ValentinaKEILA moreno prn Benadryl Allergy Active Tablets 25mg 1-2 po Unknown /0000 prn Cyclobenzaprine Active Tablets 10mg 20tab 1 PO qd Linn HCL / s prn Micky Hui Hydrocodone-Acet 09/27 Hx Tablets 5-325mg 6tabs 1 or 2 Daniel aminophen tabs by MD Tobi - mouth 10/24 every - hours as needed for pain Cyclobenzaprine 12/21 Hx Tablets 5mg 30tab 1-2 M54.9 Linn HCL s tablets Micky Hui - every 8 h 12/21 as needed Celebrex 01/02 Hx Capsules 200mg 30cap 1 by M54.5 s mouth Varn, N.P. - every day 01/20 with food Zanaflex 08/11 Hx Tablets 4mg 180ta take 09/07 M54.9 bs to 1 Micky Hui - tablet by 12/21 mouth times daily as needed Methylprednisolo 07/19 Hx Tablets 4mg QS as ford Chau (Alex) directed MECH[employer]ICAL REPAIR WORKER - on 07/19 package Lidocaine HCL 07/19 Hx Gel 2% 30ml apply to M54.5 Antione Tai lower MECHANICAL REPAIR WORKER - back 07/31 times a day Ventolin HFA 04/05 Hx Aerosol 108(90Bas 1unit 2 puffs 4 995.3 e) s times a Micky Hui - mcg/Act day as 04/17 Butalbital/Aceta 02/26 Hx Tablets 50-325-40 10tab 1 tab by R51 Daniel minophen/Caffein /2014 mg s mouth MD Tobi e - every 03/18- hours as needed max 2 days a week Alprazolam 12/27 Hx Tablets 0.25mg 4tabs 1-2 by mouth 1 Micky Hui - hour 01/26 prior to procedure s Augmentin 09/20 Hx Tablets 875-125mg 28tab one by Tory /2015 s mouth Varn, N.P. - every 10/04 hours for 14 days Amoxicillin/Clav 08/29 Hx Tablets 875-125mg 20tab one 461.9 Tory anat s tablet by Varn, N.P. Potassium - mouth 09/08 twice daily for 10 days Fluconazole 08/29 Hx Tablets 150mg 3tabs one po q 461.9 3 days Varn, N.P. - 11/02 1Hydrocodone-Keo 08/28 Hx Tablets 5-325mg 20tab 1 tab by Sharlene maysinorenny s mouth Nicole, - every M.D. 10/01- hours as needed Oxycodone-Acetam 05/16 Hx Tablets 5-325mg 90tab take 1 461.9 Linn inorenny s tablet by Micky Hui - mouth 07/01 every hours as needed pain Azithromycin 05/11 Hx Tablets 250mg 6tabs 2 tabs by Gisele.9 Linn /2014 shannon on Micky Hui - day 1; 1 05/11 tab by mouth every day on days 2-5 Augmentin 05/11 Hx Tablets 875-125mg 20tab one by 461.9 Linn s shannon Hui M.D. - every 12 07/09 hours 10 days Hydrocodone-Acet 05/11 Hx Tablets 5-325mg 15tab 1 by 461.9 Linn aminorenny s mouth Micky Hui - three 05/16 times day as needed Amoxicillin/Clav 04/19 Hx Tablets 875-125mg 20tab one 461.9 Tory tristan s tablet by Julieth, N.P. Potassium - mouth 04/29 daily for 10 days Hydroxyzine HCL 04/11 Hx Tablets 50mg 2 by Linn /2014 mouth at Micky Hui - bedtime 11/02 as needed /2014 Prednisone 02/21 Hx Tablets 10mg 20tab 4 tabs by Linn /2014 s mouth Micky Hui - days 1-2; 04/11 3 tabs by mouth on days 3-4, 2 tabs by mouth on days 5-6, 1 tab by mouth days 7-8 Zyrtec Allergy 02/20 Hx Tablets 10mg 30tab 1 by s mouth Micky Hui - every day 04/11 Alprazolam 12/25 Hx Tablets 0.25mg 2tabs 1-2 by mouth 1 Micky Hui - hour 01/08 prior test Hydrocodone-Acet 12/14 Hx Tablets 5-325mg 30tab 1-2 by 724.2 s mouth q6 Micky Hui - h as 12/25 needed pain Vicodin 12/04 Hx Tablets 5-300mg 40tab take 1 po 465.9 s q6 hours Micky Hui - prn 01/16 Benzonatate 11/06 Hx Capsules 200mg 30cap take 1 465.9 s capsule Micky Hui - by mouth 02/06 times a day if needed Vicodin 11/06 Hx Tablets 5-325mg 20tab take 1 po 465.9 s q6 hours Micky Hui - prn 12/04 Dicyclomine HCL 10/26 Hx Capsules 10mg 40cap Take One 564.1 s Capsule Micky Hui - By Mouth 04/05 Every Hours as Needed Tizanidine HCL 10/04 Hx Tablets 4mg 180ta take 1-2 723.4 bs tablets Micky Hui - by mouth 08/11 3 times daily as needed Amlodipine 10/03 Hx Tablets 5mg 30tab Take One Besylate s Tablet By Micky Hui - Mouth One 07/12 Daily Amlodipine 10/02 Hx Tablets 2.5mg 30tab 1 po qd Linn Besylate s Micky Hui - 10/03 Gabapentin 09/29 Hx Capsules 300mg take 1-2 capsules Micky Hui - by mouth 09/29 bedtime Gabapentin 09/29 Hx Capsules 100mg take 1-3 capules Micky Hui - hs prn 11/06 Levsin/SL 09/29 Hx Tablets 0.125mg 40tab 1-2 564.1 Sub s tablets Micky Hui - s/l or po 10/26 every hours as needed Gabapentin 09/21 Hx Capsules 300mg 90cap 1 po tid s Micky Hui - 09/29 Zanaflex 09/05 Hx Tablets 4mg 60tab 1 po tid 723.4 s prn Micky Hui - 10/04 Topiramate 09/01 Hx Tablets 50mg 60tab 2 tabs by Nidia s mouth Omidadt, MECH[employer] REPAIR WORKER - every 03/29 night at bedtime Methocarbamol 08/23 Hx Tablets 750mg 120ta 1 by 3.4 bs mouth 4 Micky Hui - times 09/05 daily needed Imodium A-D 08/23 Hx Tablets 2mg 30tab prn s Micky Hui - 11/06 Prilosec 08/23 Hx 1 po qd Micky Hui - 02/25 Prochlorperazine 01/19 Hx Tablets 5mg 30tab 1- 2 Vaishali Roth s tabs by Octavio - mouth q MYvonDYvon 08/18 8-12 as needed( - patient states she is not taking) Topiramate 01/09 Hx Tablets 100mg 60tab 1 tab by Sharlene Villafana s mouth Nicole, - every day M.DYvon 01/19 Anti-Itch 01/09 Hx Cream 1% Sharlene Villafana Maximum Mary Jane Rivera M.D. 01/19 Topiramate 01/09 Hx Tablets 100mg 60tab Sharlene Villafana Mary Jane Lee M.D. 09/01 Topamax 12/02 Hx Tablets 50mg 30tab 1 po qhs Sharlene Villafana Mary Jane Lee M.D. 01/09 Amitriptyline 11/04 Hx Tablets 50mg 60tab 2 po qhs Sharlene Villafana s in Nicole, - addition M.DYvon 01/09 to 1 tab /2012 25mg Percocet 11/04 Hx Tablets 5-325mg 180ta 1-2 by bs mouth Micky Hui - every 4 /05 hours needed, up to max 6/day Topamax 08/16 Hx Tablets 100mg 30tab 1 tab by Sharlene Villafana /2011 s mouth at [place], - bedtime M.D. 12/02 Amitriptyline Hx Tablets 25mg 30tab 1 po qhs Sharlene Villafana HCL /0000 s with 100 Stackman, - mg tab M.D. 09/01 Clonidine HCL Hx Tablets 0.3mg 60tab 1 tab po Unknown /0000 s qhs - 11/06 Mobic Hx Tablets 15mg 15tab once Unknown /0000 s daily - 08/23 Singulair Hx Tablets 10mg 30tab 1 po qd Linn / s Micky Hui - 02/20 Flonase Hx Suspension 50mcg/Act 1unit 2 Linn / s intranasa Micky Hui - l puffs 10/19 to nostril daily Seroquel Hx Tablets 100mg 1 PO QHS Unknown /0000 - 11/06 Buprenorphine Hx Tablets 8-2mg 461.9 Bezirganian, HCL-Naloxone HCL /0000 Rashid Brice MD - 07/07 Robinul Hx Tablets 1mg 3 times a Unknown /0000 day - 01/21 Viberzi Hx Tablets 100mg 1 PO bid Fabienne Miller /Niurka Salas MD - 12/16 Immunizations CPT Code Status Date Vaccine Lot # [id number] Given 05/13/2017 Influenza Virus Vaccine, Quadrivalent, Split, Preservative Free [id number] Given 06/08/2016 Influenza Virus Vaccine, Quadrivalent, Split, cd3tf Preservative Free [id number] Given 06/24/2015 Flu Vaccine NOS [id number] Given 07/23/2014 Flu Vaccine Split Virus Preservative Free For Indiv 3Yr Older Vital Signs Date Vital Result Comment 12/16/2017 Weight 167.00 lb Heart Rate 84 /min BP Systolic Sitting 110 mmHg BP Diastolic Sitting 78 mmHg Pain Level 3 lower back O2 % BldC Oximetry 96 % 05/31/2017 Height 63 inches 5'3" Weight 176.38 lb With shoes Heart Rate 82 /min BP Systolic Sitting 130 mmHg Lue reg cuff BP Diastolic Sitting 70 mmHg Lue reg cuff Respiratory Rate 14 /min O2 % BldC Oximetry 96 % On Ra BMI (Body Mass Index) 31.2 kg/m2 Neck Circumference in inches 14.5 04/29/2017 Height 63 inches 5'3" Weight 172.25 lb Heart Rate 93 /min BP Systolic 118 mmHg BP Diastolic 70 mmHg Body Temperature 97.5 F O2 % BldC Oximetry 98 % BMI (Body Mass Index) 30.5 kg/m2 03/18/2017 Height 63 inches 5'3" Weight 175.00 lb Heart Rate 88 /min BP Systolic Sitting 118 mmHg BP Diastolic Sitting 86 mmHg Respiratory Rate 14 /min BMI (Body Mass Index) 31.0 kg/m2 12/21/2016 Weight 173.00 lb Heart Rate 105 /min BP Systolic 128 mmHg BP Diastolic 86 mmHg Body Temperature 98.1 F O2 % BldC Oximetry 98 % 09/24/2016 Height 63 inches 5'3" Weight 174.00 lb Heart Rate 92 /min BP Systolic Sitting 122 mmHg BP Diastolic Sitting 72 mmHg Respiratory Rate 16 /min BMI (Body Mass Index) 30.8 kg/m2 09/01/2016 Height 63 inches 5'3" Weight 172.00 lb Heart Rate 103 /min BP Systolic 110 mmHg BP Diastolic 74 mmHg Body Temperature 97.8 F O2 % BldC Oximetry 96 % BMI (Body Mass Index) 30.5 kg/m2 06/08/2016 Weight 172.00 lb Heart Rate 96 /min BP Systolic Sitting 122 mmHg BP Diastolic Sitting 74 mmHg Respiratory Rate 15 /min Body Temperature 97.1 F O2 % BldC Oximetry 97 % 04/20/2016 Weight 177.00 lb Heart Rate 96 /min BP Systolic Sitting 130 mmHg BP Diastolic Sitting 84 mmHg Respiratory Rate 15 /min Body Temperature 98.1 F O2 % BldC Oximetry 98 % 03/19/2016 Height 63 inches 5'3" Weight 175.00 lb Heart Rate 80 /min BP Systolic Sitting 122 mmHg BP Diastolic Sitting 82 mmHg Respiratory Rate 14 /min BMI (Body Mass Index) 31.0 kg/m2 01/21/2016 Weight 181.00 lb Heart Rate 100 /min BP Systolic Sitting 118 mmHg BP Diastolic Sitting 66 mmHg Respiratory Rate 15 /min Body Temperature 97.4 F O2 % BldC Oximetry 98 % 01/03/2016 Weight 177.50 lb Heart Rate 104 /min BP Systolic Sitting 122 mmHg BP Diastolic Sitting 78 mmHg Body Temperature 96.2 F Pain Level 4 O2 % BldC Oximetry 97 % 07/19/2015 Heart Rate 103 /min BP Systolic Standing 146 mmHg BP Diastolic Standing 90 mmHg Pain Level 4 lower back & buttocks O2 % BldC Oximetry 98 % 04/05/2015 Height 62.5 inches 5'2.50" Heart Rate 106 /min BP Systolic 134 mmHg BP Diastolic 88 mmHg Body Temperature 97.9 F 02/26/2015 Height 62.5 inches 5'2.50" Weight 173.00 lb Heart Rate 80 /min BP Systolic Sitting 128 mmHg BP Diastolic Sitting 82 mmHg Respiratory Rate 16 /min BMI (Body Mass Index) 31.1 kg/m2 11/02/2014 Height 62.5 inches 5'2.50" Weight 166.00 lb Heart Rate 97 /min BP Systolic 134 mmHg BP Diastolic 90 mmHg Body Temperature 98.6 F BMI (Body Mass Index) 29.9 kg/m2 08/29/2014 Height 62.5 inches 5'2.50" Weight 167.00 lb Heart Rate 86 /min BP Systolic Sitting 110 mmHg BP Diastolic Sitting 80 mmHg Body Temperature 98.1 F BMI (Body Mass Index) 30.1 kg/m2 07/26/2014 Height 62.5 inches 5'2.50" Weight 163.00 lb Heart Rate 100 /min BP Systolic Sitting 138 mmHg BP Diastolic Sitting 86 mmHg Respiratory Rate 12 /min BMI (Body Mass Index) 29.3 kg/m2 07/09/2014 Weight 171.00 lb Heart Rate 86 /min BP Systolic Sitting 126 mmHg BP Diastolic Sitting 86 mmHg Body Temperature 97.2 F 05/11/2014 Weight 172.50 lb Heart Rate 90 /min BP Systolic Sitting 132 mmHg BP Diastolic Sitting 90 mmHg Body Temperature 96.9 F 04/19/2014 Height 62.5 inches 5'2.50" Weight 174.00 lb Heart Rate 84 /min BP Systolic Sitting 100 mmHg BP Diastolic Sitting 68 mmHg Body Temperature 98.3 F BMI (Body Mass Index) 31.3 kg/m2 04/11/2014 Weight 176.00 lb Heart Rate 94 /min BP Systolic Sitting 138 mmHg BP Diastolic Sitting 88 mmHg Body Temperature 96.1 F 02/06/2014 Weight 178.25 lb Heart Rate 102 /min BP Systolic Sitting 136 mmHg BP Diastolic Sitting 80 mmHg 01/16/2014 Weight 176.50 lb Heart Rate 92 /min BP Systolic Sitting 126 mmHg BP Diastolic Sitting 72 mmHg Body Temperature 98.7 F 12/25/2013 Weight 180.25 lb Heart Rate 96 /min BP Systolic Sitting 142 mmHg BP Diastolic Sitting 90 mmHg Body Temperature 98.8 F 12/14/2013 Weight 181.00 lb Heart Rate 106 /min BP Systolic Sitting 122 mmHg BP Diastolic Sitting 82 mmHg Respiratory Rate 18 /min Body Temperature 97.6 F 12/06/2013 Height 62.75 inches 5'2.75" Weight 176.25 lb Heart Rate 92 /min BP Systolic 132 mmHg BP Diastolic 88 mmHg Respiratory Rate 16 /min Body Temperature 96.4 F BMI (Body Mass Index) 31.5 kg/m2 11/06/2013 Weight 175.25 lb Heart Rate 91 /min BP Systolic Sitting 134 mmHg BP Diastolic Sitting 82 mmHg Body Temperature 97.0 F O2 % BldC Oximetry 98 % 10/03/2013 Weight 172.00 lb Heart Rate 100 /min BP Systolic 132 mmHg BP Diastolic 86 mmHg BP Systolic Sitting 150 mmHg in both arms BP Diastolic Sitting 100 mmHg in both arms 09/29/2013 Weight 172.00 lb Heart Rate 88 /min BP Systolic Sitting 162 mmHg BP Diastolic Sitting 100 mmHg 09/01/2013 Heart Rate 80 /min BP Systolic Sitting 140 mmHg BP Diastolic Sitting 88 mmHg Respiratory Rate 17 /min 08/23/2013 Height 62.5 inches 5'2.50" Weight 176.00 lb Heart Rate 84 /min BP Systolic Sitting 124 mmHg BP Diastolic Sitting 80 mmHg BMI (Body Mass Index) 31.7 kg/m2 01/19/2013 Heart Rate 84 /min BP Systolic Sitting 142 mmHg BP Diastolic Sitting 88 mmHg Respiratory Rate 12 /min 12/02/2012 Heart Rate 86 /min BP Systolic Standing 134 mmHg BP Diastolic Standing 92 mmHg Respiratory Rate 16 /min Results Test Date Test Result H/L Range Note Laboratory test finding 05/06/2017 Lyme Disease Serology Negative Negative 1 Comp Metabolic Panel 02/02/2017 Sodium 136 mmol/L 133-145 Potassium 3.9 mmol/L 3.5-5.0 Chloride 105 mmol/L 101-111 Co2 Carbon Dioxide 26 mmol/L 22-32 Anion Gap 5 mmol/L 2-11 Glucose 81 mg/dL 70-100 Blood Urea Nitrogen 13 mg/dL 6-24 Creatinine 0.69 mg/dL 0.51-0.95 BUN/Creatinine Ratio 18.8 8-20 Calcium 10.2 mg/dL 8.6-10.3 Total Protein 6.7 g/dL 6.4-8.9 Albumin 4.3 g/dL 3.2-5.2 Globulin 2.4 g/dL 2-4 Albumin/Globulin Ratio 1.8 1-3 Total Bilirubin 0.30 mg/dL 0.2-1.0 Alkaline Phosphatase 92 U/L 34-104 Alt 17 U/L 7-52 Ast 14 U/L 13-39 Egfr Non- 88.7 >60 Egfr 114.0 >60 2 Celiac Panel 02/02/2017 Tissue Transglutaminase IgA Ab <1.2 U/mL 3 Immunoglobulin A 128 mg/dL 61 - 356 Celiac Interpretation See Comment 4 CBC Auto Diff 02/02/2017 White Blood Count 10.5 10^3/uL 3.5-10.8 Red Blood Count 4.86 10^6/uL 4.0-5.4 Hemoglobin 14.4 g/dL 12.0-16.0 Hematocrit 43 % 35-47 Mean Corpuscular Volume 88 fL 80-97 Mean Corpuscular Hemoglobin 30 pg 27-31 Mean Corpuscular HGB Conc 34 g/dL 31-36 Red Cell Distribution Width 14 % 10.5-15 Platelet Count 327 10^3/uL 150-450 Mean Platelet Volume 9 um3 7.4-10.4 Abs Neutrophils 6.3 10^3/uL 1.5-7.7 Abs Lymphocytes 3.0 10^3/uL 1.0-4.8 Abs Monocytes 0.8 10^3/uL 0-0.8 Abs Eosinophils 0.3 10^3/uL 0-0.6 Abs Basophils 0.1 10^3/uL 0-0.2 Abs Nucleated RBC 0.02 10^3/uL Granulocyte % 59.8 % 38-83 Lymphocyte % 29.1 % 25-47 Monocyte % 7.4 % 1-9 Eosinophil % 3.0 % 0-6 Basophil % 0.7 % 0-2 Nucleated Red Blood Cells % 0.2 Vitamin B12 And Folate Serum 02/02/2017 Vitamin B12 325 pg/mL 180-914 5 Folic Acid (Folate) > 20.00 ng/mL >3.99 Pthi 01/23/2016 Calcium (PTH Intact) 10.3 mg/dL 8.6-10.3 PTH Intact 7.2 pmol/L 1.3-9.3 Comp Metabolic Panel 01/23/2016 Sodium 137 mmol/L 133-145 Potassium 3.9 mmol/L 3.5-5.0 Chloride 106 mmol/L 101-111 Co2 Carbon Dioxide 24 mmol/L 22-32 Anion Gap 7 mmol/L 2-11 Glucose 93 mg/dL 70-100 Blood Urea Nitrogen 10 mg/dL 6-24 Creatinine 0.70 mg/dL 0.51-0.95 BUN/Creatinine Ratio 14.3 8-20 Calcium 10.2 mg/dL 8.6-10.3 Total Protein 6.7 g/dL 6.4-8.9 Albumin 4.3 g/dL 3.2-5.2 Globulin 2.4 g/dL 2-4 Albumin/Globulin Ratio 1.8 1-3 Total Bilirubin 0.30 mg/dL 0.2-1.0 Alkaline Phosphatase 87 U/L 34-104 Alt 18 U/L 7-52 Ast 17 U/L 13-39 Egfr Non- 87.5 >60 Egfr 112.6 >60 6 CBC Auto Diff 01/23/2016 White Blood Count 7.8 10^3/uL 3.5-10.8 Red Blood Count 4.56 10^6/uL 4.0-5.4 Hemoglobin 13.5 g/dL 12.0-16.0 Hematocrit 41 % 35-47 Mean Corpuscular Volume 89 fL 80-97 Mean Corpuscular Hemoglobin 30 pg 27-31 Mean Corpuscular HGB Conc 33 g/dL 31-36 Red Cell Distribution Width 13 % 10.5-15 Platelet Count 285 10^3/uL 150-450 Mean Platelet Volume 8 um3 7.4-10.4 Abs Neutrophils 4.6 10^3/uL 1.5-7.7 Abs Lymphocytes 2.3 10^3/uL 1.0-4.8 Abs Monocytes 0.6 10^3/uL 0-0.8 Abs Eosinophils 0.3 10^3/uL 0-0.6 Abs Basophils 0.1 10^3/uL 0-0.2 Abs Nucleated RBC 0 10^3/uL Granulocyte % 58.3 % 38-83 Lymphocyte % 29.5 % 25-47 Monocyte % 7.9 % 1-9 Eosinophil % 3.5 % 0-6 Basophil % 0.8 % 0-2 Nucleated Red Blood Cells % 0 Laboratory test finding 01/23/2016 Vitamin B12 269 pg/mL 180-914 7 TSH (Thyroid Stim Horm) 0.63 ?IU/mL 0.34-5.60 Thyroxine 7.68 ?g/dL 6.09-12.23 Folic Acid (Folate) 19.09 ng/mL >3.99 Anti Nuclear Antibody 0.7 U 8 FSH (Follicle Stim Hormone) 46.3 mIU/mL 9 Lipid Profile (Trig/Chol/HDL) 03/22/2015 Triglycerides 128 mg/dL 10 Cholesterol 180 mg/dL 11 HDL Cholesterol 36.8 mg/dL 12 LDL Cholesterol 118 mg/dL 13 Comp Metabolic Panel 03/22/2015 Sodium 139 mmol/L 133-145 Potassium 4.0 mmol/L 3.5-5.0 Chloride 108 mmol/L 101-111 Co2 Carbon Dioxide 25 mmol/L 22-32 Anion Gap 6 mmol/L 2-11 Glucose 91 mg/dL 70-100 Blood Urea Nitrogen 8 mg/dL 6-24 Creatinine 0.69 mg/dL 0.51-0.95 BUN/Creatinine Ratio 11.6 8-20 Calcium 10.1 mg/dL 8.6-10.3 Total Protein 6.7 g/dL 6.4-8.9 Albumin 4.3 g/dL 3.2-5.2 Globulin 2.4 g/dL 2-4 Albumin/Globulin Ratio 1.8 1-3 Total Bilirubin 0.30 mg/dL 0.2-1.0 Alkaline Phosphatase 89 U/L 34-104 Alt 15 U/L 7-52 Ast 15 U/L 13-39 Egfr Non- 89.3 >60 Egfr 114.9 >60 14 CBC Auto Diff 03/22/2015 White Blood Count 7.2 10^3/uL 4.8-10.8 Red Blood Count 4.68 10^6/uL 4.0-5.4 Hemoglobin 14.0 g/dL 12.0-16.0 Hematocrit 43 % 35-47 Mean Corpuscular Volume 91 fL 80-97 Mean Corpuscular Hemoglobin 30 pg 27-31 Mean Corpuscular HGB Conc 33 g/dL 31-36 Red Cell Distribution Width 14 % 10.5-15 Platelet Count 278 10^3/uL 150-450 Mean Platelet Volume 8 um3 7.4-10.4 Abs Neutrophils 4.6 10^3/uL 1.5-7.7 Abs Lymphocytes 1.9 10^3/uL 1.0-4.8 Abs Monocytes 0.4 10^3/uL 0-0.8 Abs Eosinophils 0.2 10^3/uL 0-0.6 Abs Basophils 0 10^3/uL 0-0.2 Abs Nucleated RBC 0 10^3/uL Granulocyte % 63.4 % 38-83 Lymphocyte % 26.7 % 25-47 Monocyte % 6.1 % 1-9 Eosinophil % 3.1 % 0-6 Basophil % 0.7 % 0-2 Nucleated Red Blood Cells % 0 Basic Metabolic Panel 11/09/2014 Sodium 133 mmol/L 133-145 Potassium 4.0 mmol/L 3.5-5.0 Chloride 103 mmol/L 101-111 Co2 Carbon Dioxide 23 mmol/L 22-32 Anion Gap 7 mmol/L 2-11 Glucose 109 mg/dL High 70-100 Blood Urea Nitrogen 12 mg/dL 6-24 Creatinine 0.64 mg/dL 0.51-0.95 BUN/Creatinine Ratio 18.8 8-20 Calcium 10.5 mg/dL High 8.6-10.3 Egfr Non- 97.4 >60 Egfr 125.3 >60 15 Inr/Protime 11/09/2014 Inr 0.91 0.78-1.07 CBC Auto Diff 11/03/2014 White Blood Count 9.3 10^3/uL 4.8-10.8 Red Blood Count 4.32 10^6/uL 4.0-5.4 Hemoglobin 13.2 g/dL 12.0-16.0 Hematocrit 39 % 35-47 Mean Corpuscular Volume 91 fL 80-97 Mean Corpuscular Hemoglobin 31 pg 27-31 Mean Corpuscular HGB Conc 34 g/dL 31-36 Red Cell Distribution Width 14 % 10.5-15 Platelet Count 312 10^3/uL 150-450 Mean Platelet Volume 8 um3 7.4-10.4 Abs Neutrophils 6.7 10^3/uL 1.5-7.7 Abs Lymphocytes 2.0 10^3/uL 1.0-4.8 Abs Monocytes 0.4 10^3/uL 0-0.8 Abs Eosinophils 0.1 10^3/uL 0-0.6 Abs Basophils 0.1 10^3/uL 0-0.2 Abs Nucleated RBC 0 10^3/uL Granulocyte % 71.8 % 38-83 Lymphocyte % 21.6 % Low 25-47 Monocyte % 4.6 % 1-9 Eosinophil % 1.3 % 0-6 Basophil % 0.7 % 0-2 Nucleated Red Blood Cells % 0 Inr/Protime 11/03/2014 Inr 1.42 High 0.78-1.07 16 Comp Metabolic Panel 11/03/2014 Sodium 138 mmol/L 133-145 Potassium 3.3 mmol/L Low 3.5-5.0 Chloride 105 mmol/L 101-111 Co2 Carbon Dioxide 25 mmol/L 22-32 Anion Gap 8 mmol/L 2-11 Glucose 84 mg/dL 70-100 Blood Urea Nitrogen 12 mg/dL 6-24 Creatinine 0.72 mg/dL 0.51-0.95 BUN/Creatinine Ratio 16.7 8-20 Calcium 10.7 mg/dL High 8.6-10.3 Total Protein 7.1 g/dL 6.4-8.9 Albumin 4.5 g/dL 3.2-5.2 Globulin 2.6 g/dL 2-4 Albumin/Globulin Ratio 1.7 1-3 Total Bilirubin 0.30 mg/dL 0.2-1.0 Alkaline Phosphatase 82 U/L 34-104 Alt 13 U/L 7-52 Ast 13 U/L 13-39 Egfr Non- 85.1 >60 Egfr 109.4 >60 17 Laboratory test finding 11/03/2014 Amylase 28 U/L Low 29-103 Lipase 15 U/L 11.0-82.0 CBC Auto Diff 07/01/2014 White Blood Count 11.1 10^3/uL High 4.8-10.8 Red Blood Count 4.20 10^6/uL 4.0-5.4 Hemoglobin 12.8 g/dL 12.0-16.0 Hematocrit 38 % 35-47 Mean Corpuscular Volume 91 fL 80-97 Mean Corpuscular Hemoglobin 31 pg 27-31 Mean Corpuscular HGB Conc 34 g/dL 31-36 Red Cell Distribution Width 14 % 10.5-15 Platelet Count 246 10^3/uL 150-450 Mean Platelet Volume 8 um3 7.4-10.4 Abs Neutrophils 7.4 10^3/uL 1.5-7.7 Abs Lymphocytes 2.6 10^3/uL 1.0-4.8 Abs Monocytes 0.7 10^3/uL 0-0.8 Abs Eosinophils 0.3 10^3/uL 0-0.6 Abs Basophils 0.1 10^3/uL 0-0.2 Abs Nucleated RBC 0 10^3/uL Granulocyte % 66.7 % 38-83 Lymphocyte % 23.1 % Low 25-47 Monocyte % 6.6 % 1-9 Eosinophil % 3.1 % 0-6 Basophil % 0.5 % 0-2 Nucleated Red Blood Cells % 0 Comp Metabolic Panel 07/01/2014 Sodium 133 mmol/L 133-145 Potassium 3.6 mmol/L Low 3.7-5.6 Chloride 101 mmol/L 101-111 Co2 Carbon Dioxide 26 mmol/L 22-32 Anion Gap 6 mmol/L 2-11 Glucose 98 mg/dL 70-100 Blood Urea Nitrogen 7 mg/dL 6-24 Creatinine 0.56 mg/dL 0.51-0.95 BUN/Creatinine Ratio 12.5 8-20 Calcium 9.9 mg/dL 8.6-10.3 Total Protein 6.7 g/dL 6.4-8.9 Albumin 4.1 g/dL 3.2-5.2 Globulin 2.6 g/dL 2-4 Albumin/Globulin Ratio 1.6 1-3 Total Bilirubin 0.30 mg/dL 0.2-1.0 Alkaline Phosphatase 73 U/L 34-104 Alt 18 U/L 7-52 Ast 17 U/L 13-39 Egfr Non- 114.1 >60 Egfr 146.8 >60 18 Laboratory test finding 07/01/2014 Acetaminophen < 15 g/mL 19 Alcohol < 10 mg/dL <10 Salicylate < 2.50 mg/dL <30 TSH (Thyroid Stimulating Horm) 0.85 IU/mL 0.34-5.60 Urinalysis Profile 07/01/2014 Urine Color Straw Urine Appearance Clear Urine Specific [place] 1.004 Low 1.010-1.030 Urine pH 7.0 5-9 Urine Urobilinogen Negative Negative Urine Ketones Negative Negative Urine Protein Negative Negative Urine Leukocytes Negative Negative Urine Blood Negative Negative Urine Nitrite Negative Negative Urine Bilirubin Negative Negative Urine Glucose Negative Negative Urine Drug SCR ED 07/01/2014 Amphetamine Ur Screen None Detected None Detect & [facility] Barbiturates Urine Screen None Detected None Detect Benzodiazepine Urine Screen None Detected None Detect Urine Cannabinoids Screen None Detected None Detect Urine Cocaine Screen None Detected None Detect Urine Opiates Screen None Detected None Detect Urine Phencyclidine Screen None Detected None Detect 20 Pthi 02/05/2014 PTH Intact 4.7 pmol/L 1.3-9.3 Calcium (PTH Intact) 10.4 mg/dL High 8.6-10.3 CBC Auto Diff 12/25/2013 White Blood Count 8.9 10^3/uL 4.8-10.8 Red Blood Count 4.62 10^6/uL 4.0-5.4 Hemoglobin 13.8 g/dL 12.0-16.0 Hematocrit 40 % 35-47 Mean Corpuscular Volume 87 fL 80-97 Mean Corpuscular Hemoglobin 30 pg 27-31 Mean Corpuscular HGB Conc 34 g/dL 31-36 Red Cell Distribution Width 14 % 10.5-15 Platelet Count 289 10^3/uL 150-450 Mean Platelet Volume 9 um3 7.4-10.4 Abs Neutrophils 5.8 10^3/uL 1.5-7.7 Abs Lymphocytes 2.3 10^3/uL 1.0-4.8 Abs Monocytes 0.5 10^3/uL 0-0.8 Abs Eosinophils 0.3 10^3/uL 0-0.6 Abs Basophils 0.1 10^3/uL 0-0.2 Abs Nucleated RBC 0 10^3/uL Granulocyte % 64.6 % 38-83 Lymphocyte % 26.2 % 25-47 Monocyte % 5.4 % 1-9 Eosinophil % 3.0 % 0-6 Basophil % 0.8 % 0-2 Nucleated Red Blood Cells % 0 Laboratory test finding 12/25/2013 Erythrocyte Sed Rate 9 mm/Hr 0-30 Protein Electrophoresis 12/25/2013 Total Protein(Pep) 7.0 g/dL 6.3 - 7.9 Albumin 3.6 g/dL 3.4-4.7 Alpha-1 Globulin 0.3 g/dL 0.1-0.3 Alpha-2 Globulin 1.0 g/dL 0.6-1.0 Beta Globulin 1.0 g/dL 0.7-1.2 Gamma Globulin 1.2 g/dL 0.6-1.6 Albumin/Globulin Ratio 1.05 Impression See Comment 21 Pthi 10/25/2013 PTH Intact 7.9 pmol/L 1.3-9.3 Calcium (PTH Intact) 10.4 mg/dL High 8.6-10.3 Laboratory test finding 10/25/2013 Calcium Ionized 5.41 mg/dL High 4.65- 5.28 Comp Metabolic Panel 09/29/2013 Sodium 138 mmol/L 133-145 Potassium 3.6 mmol/L 3.5-5.0 Chloride 105 mmol/L 101-111 Co2 Carbon Dioxide 26.0 mmol/L 22-32 Anion Gap 7.0 mmol/L 2-11 Glucose 80 mg/dL 70-100 Blood Urea Nitrogen 10 mg/dL 6-24 Creatinine 0.70 mg/dL 0.50-1.40 BUN/Creatinine Ratio 14.3 8-20 Calcium 10.4 mg/dL High 8.1-9.9 Total Protein 6.6 g/dL 6.2-8.1 Albumin 4.3 g/dL 3.6-5.4 Globulin 2.3 g/dL 2-4 Albumin/Globulin Ratio 1.9 1-3 Total Bilirubin 0.4 mg/dL 0.4-1.5 Alkaline Phosphatase 85 U/L 30-110 Alt 21 U/L 14-54 Ast 16 U/L 12-42 Egfr Non- 88.2 >60 Egfr 113.5 >60 22 Laboratory test finding 01/24/2013 Vitamin B12 535 pg/mL 180-914 Folate > 25.2 ng/mL High 2-16 C Reactive Protein 1.0 mg/dL High Less than 0.5 Sarahi (Anti-Nuclear AB) Screen Negative Negative 23 1 Serologic response to B. burgdorferi infection is not detected, but cannot rule out early infection during which low or undetectable antibody levels to B. burgdorferi may be present. If clinically indicated, a new serum specimen should be submitted in 7-14 days. Test Performed by: [facility] - [address] [address] 2 Because ethnic data is not always readily available, this report includes an eGFR for both -Americans and non- Americans. The National Kidney Disease Education Program (NKDEP) does not endorse the use of the MDRD equation for patients that are not between the ages of 18 and 70, are , have extremes of body size, muscle mass, or nutritional status, or are non- or non-. According to the National Kidney Foundation, irrespective of diagnosis, the stage of the disease is based on the level of kidney function: Stage Description GFR(mL/min/1.73 m(2)) 1 Kidney damage with normal or decreased GFR 90 2 Kidney damage with mild decrease in GFR 60-89 3 Moderate decrease in GFR 30-59 4 Severe decrease in GFR 15-29 5 Kidney failure <15 (or dialysis) 3 REFERENCE VALUE <4.0 (Negative) Test Performed by: [place] [address] 4 Negative serology. Celiac disease unlikely. However, approximately 10% of patients with celiac disease are seronegative. Also, patients who are already adhering to a gluten-free diet may be seronegative. If celiac disease is highly clinically suspected, consider HLA-DQ typing. Test Performed by: [place] [id number] 5 Normal Range 180 to 914 Indeterminate Range 145 to 180 Deficient Range <145 6 Because ethnic data is not always readily available, this report includes an eGFR for both -Americans and non- Americans. The National Kidney Disease Education Program (NKDEP) does not endorse the use of the MDRD equation for patients that are not between the ages of 18 and 70, are , have extremes of body size, muscle mass, or nutritional status, or are non- or non-. According to the National Kidney Foundation, irrespective of diagnosis, the stage of the disease is based on the level of kidney function: Stage Description GFR(mL/min/1.73 m(2)) 1 Kidney damage with normal or decreased GFR 90 2 Kidney damage with mild decrease in GFR 60-89 3 Moderate decrease in GFR 30-59 4 Severe decrease in GFR 15-29 5 Kidney failure <15 (or dialysis) 7 Normal Range 180 to 914 Indeterminate Range 145 to 180 Deficient Range <145 8 REFERENCE VALUE <=1.0 (Negative) Test Performed by: [facility] [address] [id number] Parts Product Analyst: Cresencio Andrade II, M.D., Ph.D. 9 Normally menstruating females - Follicular phase 3 - 9 - Mid-cycle peak 4 - 23 - Luteal phase 1 - 6 Postmenopausal females 16 - 114 10 Desirable <150 Borderline high 150-199 High 200-499 Very High >500 11 Desirable <200 Borderline high 200-239 High >239 12 Low <40 Desirable: 40-60 High: >60 13 Desirable: <100 mg/dL Near Optimal: 100-129 mg/dL Borderline High: 130-159 mg/dL High: 160-189 mg/dL Very High: >189 mg/dL 14 Because ethnic data is not always readily available, this report includes an eGFR for both -Americans and non- Americans. The National Kidney Disease Education Program (NKDEP) does not endorse the use of the MDRD equation for patients that are not between the ages of 18 and 70, are , have extremes of body size, muscle mass, or nutritional status, or are non- or non-. According to the National Kidney Foundation, irrespective of diagnosis, the stage of the disease is based on the level of kidney function: Stage Description GFR(mL/min/1.73 m(2)) 1 Kidney damage with normal or decreased GFR 90 2 Kidney damage with mild decrease in GFR 60-89 3 Moderate decrease in GFR 30-59 4 Severe decrease in GFR 15-29 5 Kidney failure <15 (or dialysis) 15 Because ethnic data is not always readily available, this report includes an eGFR for both -Americans and non- Americans. The National Kidney Disease Education Program (NKDEP) does not endorse the use of the MDRD equation for patients that are not between the ages of 18 and 70, are , have extremes of body size, muscle mass, or nutritional status, or are non- or non-. According to the National Kidney Foundation, irrespective of diagnosis, the stage of the disease is based on the level of kidney function: Stage Description GFR(mL/min/1.73 m(2)) 1 Kidney damage with normal or decreased GFR 90 2 Kidney damage with mild decrease in GFR 60-89 3 Moderate decrease in GFR 30-59 4 Severe decrease in GFR 15-29 5 Kidney failure <15 (or dialysis) 16 Please note: Effective October 03, 2014, the reference value for this test has changed due to the validation and activation of a new reagent lot number. 17 Because ethnic data is not always readily available, this report includes an eGFR for both -Americans and non- Americans. The National Kidney Disease Education Program (NKDEP) does not endorse the use of the MDRD equation for patients that are not between the ages of 18 and 70, are , have extremes of body size, muscle mass, or nutritional status, or are non- or non-. According to the National Kidney Foundation, irrespective of diagnosis, the stage of the disease is based on the level of kidney function: Stage Description GFR(mL/min/1.73 m(2)) 1 Kidney damage with normal or decreased GFR 90 2 Kidney damage with mild decrease in GFR 60-89 3 Moderate decrease in GFR 30-59 4 Severe decrease in GFR 15-29 5 Kidney failure <15 (or dialysis) 18 Because ethnic data is not always readily available, this report includes an eGFR for both -Americans and non- Americans. The National Kidney Disease Education Program (NKDEP) does not endorse the use of the MDRD equation for patients that are not between the ages of 18 and 70, are , have extremes of body size, muscle mass, or nutritional status, or are non- or non-. According to the National Kidney Foundation, irrespective of diagnosis, the stage of the disease is based on the level of kidney function: Stage Description GFR(mL/min/1.73 m(2)) 1 Kidney damage with normal or decreased GFR 90 2 Kidney damage with mild decrease in GFR 60-89 3 Moderate decrease in GFR 30-59 4 Severe decrease in GFR 15-29 5 Kidney failure <15 (or dialysis) 19 Therapeutic concentration: <50 ug/mL Toxic concentration: >120 ug/mL 20 The urine specimen was tested at the listed cutoffs: Drug class test level (ng/ml) Amphetamines 300 Barbituates 200 Benzodiazepine metabolites 200 Cocaine metabolites 300 Cannabinoids 25 Opiates 200 Pcp 25 This is a screening procedure. Positive results are not confirmed. Specimen was received without chain of custody. Results should be used for medical purposes only. 21 RESULT: No apparent monoclonal protein on serum electrophoresis. Test Performed by: [place] [id number] Parts Product Analyst: Rex Lin III, M.D. 22 Because ethnic data is not always readily available, this report includes an eGFR for both -Americans and non- Americans. The National Kidney Disease Education Program (NKDEP) does not endorse the use of the MDRD equation for patients that are not between the ages of 18 and 70, are , have extremes of body size, muscle mass, or nutritional status, or are non- or non-. According to the National Kidney Foundation, irrespective of diagnosis, the stage of the disease is based on the level of kidney function: Stage Description GFR(mL/min/1.73 m(2)) 1 Kidney damage with normal or decreased GFR 90 2 Kidney damage with mild decrease in GFR 60-89 3 Moderate decrease in GFR 30-59 4 Severe decrease in GFR 15-29 5 Kidney failure <15 (or dialysis) 23 @Sample frozen by [id number] at 1604 on 01/24/13. Procedures Date CPT Code Description Status 06/08/2017 46190 Sleep Study Unattended,HRT Rate,Oxygen Sat,Resp Completed Effort/Airflow 05/31/2017 32229 Sleep Study Unattended,HRT Rate,Oxygen Sat,Resp Completed Effort/Airflow 05/15/2015 Mammogram Completed 05/01/2015 Mammogram Completed 02/15/2014 Colonoscopy Completed 12/12/2013 Bone Mineral Density Test Completed Encounters Type Date Location Provider CPT E/M Dx Office Visit 05/31/2017 [facility] Delaney Garcia, 29476 G47.30 10:15a [facility] CHERYL RN, [facility]- G47.30 G47.14 G47.14 Office Visit 04/29/2017 3:20p [facility] Internal Medicine Linn Hui M.D. 11607 R21 - [place] R06.83 Office Visit 03/18/2017 11:15a [facility] Sharlene Rivera, 83708 G43.119 [facility] Artie.Cal Z73.3 Office Visit 12/21/2016 4:00p [facility] Internal Medicine Linn Hui 53242 M54.9 - Lien Weeks Office Visit 09/24/2016 3:00p [facility] Sharlene Rivera, 62019 G43.119 [facility] Micky Z65.9 Office Visit 09/01/2016 2:20p [facility] Internal [place] Rg, 00720 S80.11xA [place] - Lien Weeks,FACP Office Visit 06/08/2016 4:40p [facility] Internal Linn Hui 45581 S00.06xA [place] - Lien Weeks Z23 K58.0 Office Visit 04/20/2016 4:40p [facility] Internal Medicine Linn Hui 45863 M25.571 - Lien Weeks Office Visit 03/19/2016 3:30p [facility] Sharlene Rivera, 52634 G43.119 Services Of [place] Office Visit 01/21/2016 3:40p [facility] Internal Medicine Linn Hui 11355 R41.3 - Lien Weeks E83.52 N95.1 R12 Office Visit 01/03/2016 2:20p [facility] Internal Medicine Tory Clancy, N.P. 50129 M54.5 - [place] Office Visit 07/19/2015 3:20p [facility] [place] [address] M54.5 - [place] Office Visit 04/05/2015 10:00a [facility] Internal Medicine Linn Hui 34693 401.1 - Lien Weeks 564.1 611.71 995.3 477.9 Office Visit 02/26/2015 10:45a [facility] Sharlene Rivera, 39246 784.0 [facility] [employer] M.D. Office Visit 11/02/2014 2:00p [facility] Internal Medicine Linn Hui, 36576 724.2 - [place] M.D. Office Visit 08/29/2014 11:00a [facility] Internal Medicine Tory Clancy, N.P. 63294 461.9 - [place] Office Visit 07/26/2014 8:30a [facility] Sharlene Rivera, 24641 784.0 [facility] [employer] M.D. Office Visit 07/09/2014 11:30a [facility] [place] [address] 368.16 - [place] 780.1 Office Visit 05/11/2014 8:40a [facility] Internal Medicine Linn Hui, 43924 461.9 - [place] M.Cal 724.2 Office Visit 04/19/2014 9:40a [facility] Internal Medicine Tory Clancy, N.P. 04838 461.9 - [place] Office Visit 04/11/2014 10:00a [facility] Internal Medicine Linn Hui 22131 724.2 - [place] M.D. Office Visit 02/06/2014 1:20p [facility] Internal Medicine Linn Hui, 09815 275.42 - [place] M.D. 724.2 Office Visit 01/16/2014 8:40a [facility] Internal Medicine Linn Hui 10253 724.2 - [place] M.D. 275.42 Office Visit 12/25/2013 11:40a [facility] Internal Medicine Linn Hui 04659 724.2 - [place] M.D. Office Visit 12/14/2013 4:20p [facility] Internal Medicine May Hannon M.D., 65801 724.2 - [place] FACP Office Visit 12/06/2013 9:00a [facility] Internal Medicine Linn Hui 98769 723.1 - [place] M.D. 724.2 780.59 Office Visit 11/23/2013 11:32a [facility] Ryan Dorado, 38293 780.59 MTimmy 786.09 Office Visit 11/06/2013 9:40a [facility] Internal Medicine Linn Hui, 51261 465.9 - Lien Weeks 275.42 627.9 Office Visit 10/03/2013 1:20p [facility] Internal Medicine Linn Hui, 92448 401.1 - Lien Weeks Office Visit 09/29/2013 1:00p [facility] Internal Medicine Linn Hui 17809 723.4 - Lien Weeks 564.1 307.49 796.2 Office Visit 09/01/2013 10:45a [facility] Sharlene Rivera, 05260 346.90 [facility] Micky Office Visit 08/23/2013 1:00p [facility] Internal Medicine Linn Hui, 36278 723.4 - Lien Weeks 472.0 564.1 311 Office Visit 01/19/2013 12:45p [facility] Sharlene Rivera, 05323 784.0 [facility] Micky 799.59 Office Visit 12/02/2012 11:45a [facility] Sharlene Rivera, 37544 346.90 [facility] Micky 799.59 Office Visit 11/09/2012 10:45a Mikey Jensen, 73576 786.09 [facility] Micky 780.79 Office Visit 05/27/2012 8:30a [facility] Sharlene Rivera, 53904 784.0 [facility] Micky Plan of Care Future Appointment(s):06/03/2018 1:20 pm - Linn Hui M.D. at [facility] Internal Medicine - Hkggegloc50/21/2018 9:30 am - Wale Phelps M.D. at [facility]12/16/2017 - Linn Hui M.D.I10 Essential (primary) hypertensionComments:Your blood pressure is fine. Continue the same medication Please do fasting blood testsFollow up:AWV in the fallR07.9 Chest pain, unspecifiedComments:Let me know if the chest pain sgqjkoO80.31 Encntr screen mammogram for malignant neoplasm of breast
[2017-12-26 18:24] VITALS: BP 130/92
[2017-12-26] MEDS ORDERED: predniSONE TAB* 20 MG PO ONE (19:22)
--- NOTE | 2017-12-26 19:33 | UC ---
Respiratory Complaint HPI - HPI Summary HPI Summary: Patient presents with itchy skin since yesterday. States she does have a problem with fleas but that this feels a bit different. She has also had general myalgias, fatigue, headache and chills for over a week. [place] Her throat is sore and she has a mild cough. Is concerned about strep. - History of Current Complaint Chief Complaint: UCRash Stated Complaint: ACHES AND PAIN Time Seen by Provider: 12/26/17 18:27 Hx Obtained From: Patient Hx Last Menstrual Period: HYSTERECTOMY Onset/Duration: Gradual Onset, Lasting Days, Still Present Timing: Constant Severity Initially: Moderate Severity Currently: Moderate Pain Intensity: 0 Pain Scale Used: 0-10 Numeric Character: Cough: Nonproductive Aggravating Factors: Nothing Alleviating Factors: Nothing Associated Signs And Symptoms: Positive: Fever - Subjective, Chills. Negative: Dyspnea - Allergies/Home Medications Allergies/Adverse Reactions: Allergies Allergy/AdvReac Type Severity Reaction Status Date / Time aripiprazole [From Abilify] Allergy Dizziness Verified 12/26/17 18:25 aspirin Allergy Bleeding Verified 12/26/17 18:25 bupropion [From Wellbutrin] Allergy Hallucinati Verified 12/26/17 18:25 ons erythromycin base Allergy Diarrhea Verified 12/26/17 18:25 levofloxacin [From Levaquin] Allergy Joint Pain Verified 12/26/17 18:25 midazolam [From Versed] Allergy See Comment Verified 12/26/17 18:25 NSAIDS (Non-Steroidal Allergy Bleeding Verified 12/26/17 18:25 Anti-Inflamma pepper (genus Capsicum) Allergy Difficulty Verified 12/26/17 18:25 [pepper] Breathing pepper Allergy Hives/Diff. Uncoded 11/27/17 13:13 Breathing/I tching PMH/Surg Hx/FS Hx/Imm Hx Cardiovascular History: Hypertension Psychological History: Depression Other History Of: Negative For: Anticoagulant Therapy - Surgical History Surgical History: Yes Surgery Procedure, Year, and Place: 2005 Hysterectomy. 2-LAPROSCOPIC- ENDOMETRIOSIS. TONSILECTOMY-1968 - Family History Known Family History: Positive: Cardiac Disease, Hypertension, Other - positive anxiety to mother and sister Family History: anxiety, COPD - Social History Alcohol Use: None Substance Use Type: None Substance Use Comment - Amount & Last Used: hydrocodone Smoking Status (MU): Never Smoked Tobacco Have You Smoked in the Last Year: No - Immunization History Most Recent Influenza Vaccination: season Review of Systems Constitutional: Fever, Chills, Fatigue Skin: Rash ENT: Sore Throat Respiratory: Cough Cardiovascular: Negative Gastrointestinal: Negative Musculoskeletal: Myalgia Neurological: Headache All Other Systems Reviewed And Are Negative: Yes Physical Exam Triage Information Reviewed: Yes Appearance: Well-Appearing, No Pain Distress, Well-Nourished Vital Signs: Initial Vital Signs Temp 98.1 F 12/26/17 18:16 Pulse 90 12/26/17 18:16 Resp 18 12/26/17 18:16 BP 130/92 12/26/17 18:16 Pulse Ox 97 12/26/17 18:16 Vital Signs Reviewed: Yes Eyes: Positive: Conjunctiva Clear ENT: Positive: Hearing grossly normal, Pharynx normal, TMs normal Neck: Positive: Supple, Nontender, No Lymphadenopathy Respiratory Exam: Normal Cardiovascular Exam: Normal Abdomen Description: Positive: Nontender, Soft Musculoskeletal: Positive: No Edema Neurological: Positive: Alert Psychological: Positive: Age Appropriate Behavior Skin: Positive: rashes - Few erythematous pinpoint lesions scattered over right forearm. No discernible rash seen on remaining extremities, trunk or face. UC Diagnostic Evaluation - Laboratory O2 Sat by Pulse Oximetry: 97 Diagnostic Studies Comment: Rapid strep negative Respiratory Course/Dx - Differential Dx/Diagnosis Provider Diagnoses: ACUTE VIRAL SYNDROME Discharge - Sign-Out/Discharge Documenting (check all that apply): Discharge - Discharge Plan Condition: Stable Disposition: HOME Prescriptions: predniSONE TAB* [Deltasone TAB*] 40 mg PO DAILY #8 tab Patient Education Materials: Viral Syndrome (ED) Referrals: Linn Hui MD [Primary Care Provider] - If Needed Additional Instructions: Strep test negative today. Your symptoms are nonspecific and likely related to a viral infection. Rest, hydrate, OTC medications as needed for discomfort. I would recommend taking an OTC antihistamine such as Claritin or Zyrtec to cover for possible allergy. We'll also treat with prednisone. No indication for antibiotics at present. Given your concern about muscle aches headache and chills will draw a Lyme serology today. We will call you with any abnormal results. Follow-up with your regular doctor if you're not improving over the next 1-2 weeks. - Billing Disposition and Condition Condition: STABLE Disposition: HOME
== END 2017-12-26 19:40 | disposition home or self-care (01) ==
LOC: UCEAST 17:43
DX: B34.9 Viral infection, unspecified (principal); Z88.8 Allergy status to other drugs, medicaments and biological substances; Z88.3 Allergy status to other anti-infective agents; Z88.6 Allergy status to analgesic agent
CPT/HCPCS: 86618; 87651; 99212; G0463; J7512

== ENCOUNTER 2018-04-17 17:24 | Emergency (ER) | payer MEDICARE ==
[2018-04-17 18:03] VITALS: BP 142/93
--- NOTE | 2018-04-17 18:33 | UC ---
Skin Complaint HPI - HPI Summary HPI Summary: 57 yo female presents with white patch on the inside of her lower lip with mild pain. First noticed yesterday. Denies injury, fever, chills, or recent illness - History of Current Complaint Chief Complaint: UCDentalProblem Time Seen by Provider: 04/17/18 18:33 Stated Complaint: MOUTH COMPLAINT Hx Obtained From: Patient Hx Last Menstrual Period: HYSTERECTOMY Onset/Duration: Sudden Onset Onset Severity: Mild Current Severity: Mild Pain Intensity: 3 Pain Scale Used: 0-10 Numeric - Allergy/Home Medications Allergies/Adverse Reactions: Allergies Allergy/AdvReac Type Severity Reaction Status Date / Time guava Allergy Intermediate Hives Verified 04/17/18 18:04 aripiprazole [From Abilify] Allergy Dizziness Verified 04/17/18 18:03 aspirin Allergy Bleeding Verified 04/17/18 18:03 bupropion [From Wellbutrin] Allergy Hallucinati Verified 04/17/18 18:03 ons erythromycin base Allergy Diarrhea Verified 04/17/18 18:03 levofloxacin [From Levaquin] Allergy Joint Pain Verified 04/17/18 18:03 midazolam [From Versed] Allergy See Comment Verified 04/17/18 18:03 NSAIDS (Non-Steroidal Allergy Bleeding Verified 04/17/18 18:03 Anti-Inflamma pepper (genus Capsicum) Allergy Difficulty Verified 04/17/18 18:03 [pepper] Breathing pepper Allergy Hives/Diff. Uncoded 04/17/18 18:03 Breathing/I tching Review of Systems Constitutional: Negative Skin: Other - Lip lesion Respiratory: Negative Cardiovascular: Negative Neurovascular: Negative Neurological: Negative Psychological: Negative All Other Systems Reviewed And Are Negative: Yes PMH/Surg Hx/FS Hx/Imm Hx GI/ History: Gastroesophageal Reflux Psychological History: Anxiety, Depression, Bipolar Disorder Other History Of: Negative For: Anticoagulant Therapy - Surgical History Surgical History: Yes Surgery Procedure, Year, and Place: 2006 Hysterectomy. 2-LAPROSCOPIC- ENDOMETRIOSIS. TONSILECTOMY-1969 - Family History Known Family History: Positive: Cardiac Disease, Hypertension, Other - positive anxiety to mother and sister Family History: anxiety, COPD - Social History Lives: With Family Alcohol Use: None Substance Use Type: None Substance Use Comment - Amount & Last Used: hydrocodone Smoking Status (MU): Never Smoked Tobacco Have You Smoked in the Last Year: No - Immunization History Most Recent Influenza Vaccination: season Physical Exam - Summary Physical Exam Summary: GENERAL: NAD. WDWN. No pain distress. SKIN: No rashes, sores, lesions, or open wounds. Throat: Posterior oropharynx without exudates, erythema, or tonsillar enlargement. Uvula midline. Lips: Lower lip with 5mm white patch that appears consistent with granulation tissue from recent trauma. Mild TTP. No erythematous base or ulcer. NECK: Supple. Nontender. No lymphadenopathy. CHEST: No accessory muscle use. Breathing comfortably and in no distress. CV: Pulses intact. Brisk cap refill. NEURO: Alert. CN II-XII grossly intact. PSYCH: Age appropriate behavior. Triage Information Reviewed: Yes Vital Signs: Initial Vital Signs Temp 98.5 F 04/17/18 17:58 Pulse 89 04/17/18 17:58 Resp 20 04/17/18 17:58 BP 142/93 04/17/18 17:58 Pulse Ox 98 04/17/18 17:58 Vital Signs Reviewed: Yes Course/Dx - Course Course Of Treatment: Suspect pt had a minor abrasion/laceration to the area and it is now healing. Will rx for magic mouthwash to assist with pain reduction. Advised to apply ice to her lip - Diagnoses Provider Diagnoses: Lower lip injury Discharge - Sign-Out/Discharge Documenting (check all that apply): Patient Departure - Discharge Plan Condition: Stable Disposition: HOME Prescriptions: Magic Mouth Was-JESSICA/MAAL/LIDO* 10 ml SWISH SPIT QID #180 ml Referrals: Linn Hui MD [Primary Care Provider] - Lisandro Kirkland MD [Medical Doctor] - If Needed Additional Instructions: If you develop a fever, shortness of breath, chest pain, new or worsening symptoms - please call your PCP or go to the ED. Your blood pressure was high at todays visit. Please see your primary provider within 4 weeks for recheck and re-evaluation. - Billing Disposition and Condition Condition: STABLE Disposition: Home
== END 2018-04-17 19:00 | disposition home or self-care (01) ==
LOC: UCEAST 17:24
DX: S09.93XA Unspecified injury of face, initial encounter (principal); X58.XXXA Exposure to other specified factors, initial encounter; Y93.9 Activity, unspecified; Y99.9 Unspecified external cause status
CPT/HCPCS: 99212; G0463

== ENCOUNTER 2018-07-26 09:40 | Emergency (ER) | payer MEDICARE ==
--- NOTE | 2018-07-26 09:51 | UC ---
Skin Complaint HPI - HPI Summary HPI Summary: 57 yo female presents with multiple flea bites. She tells me that her house is "infested" with fleas and she is working to resolve this problem. She is very concerned as she has a hx of MRSA and admits to scratching these flea bites and some of them are open wounds now. She denies fever or chills. - History of Current Complaint Time Seen by Provider: 07/26/18 09:51 Stated Complaint: SKIN ISSUE Hx Obtained From: Patient Hx Last Menstrual Period: HYSTERECTOMY Onset/Duration: Gradual Onset Onset Severity: Moderate Current Severity: Moderate Pain Intensity: 5 Pain Scale Used: 0-10 Numeric - Allergy/Home Medications Allergies/Adverse Reactions: Allergies Allergy/AdvReac Type Severity Reaction Status Date / Time guava Allergy Intermediate Hives Verified 07/26/18 09:54 aripiprazole [From Abilify] Allergy Dizziness Verified 07/26/18 09:54 aspirin Allergy Bleeding Verified 07/26/18 09:54 bupropion [From Wellbutrin] Allergy Hallucinati Verified 07/26/18 09:54 ons erythromycin base Allergy Diarrhea Verified 07/26/18 09:54 levofloxacin [From Levaquin] Allergy Joint Pain Verified 07/26/18 09:54 midazolam [From Versed] Allergy See Comment Verified 07/26/18 09:54 neomycin Allergy Hives Verified 07/26/18 10:32 NSAIDS (Non-Steroidal Allergy Bleeding Verified 07/26/18 09:54 Anti-Inflamma pepper (genus Capsicum) Allergy Difficulty Verified 07/26/18 09:54 [pepper] Breathing pepper Allergy Hives/Diff. Uncoded 07/26/18 09:54 Breathing/I tching Review of Systems All Other Systems Reviewed And Are Negative: Yes Constitutional: Positive: Negative Skin: Positive: Other - Flea bites Eyes: Positive: Negative ENT: Positive: Negative Respiratory: Positive: Negative Cardiovascular: Positive: Negative Gastrointestinal: Positive: Negative Neurovascular: Positive: Negative Musculoskeletal: Positive: Negative Neurological: Positive: Negative Psychological: Positive: Negative PMH/Surg Hx/FS Hx/Imm Hx GI/ History: Gastroesophageal Reflux Psychological History: Anxiety, Depression, Bipolar Disorder Other History Of: Negative For: Anticoagulant Therapy - Surgical History Surgical History: Yes Surgery Procedure, Year, and Place: 2005 Hysterectomy. 2-LAPROSCOPIC- ENDOMETRIOSIS. TONSILECTOMY-1968 - Family History Known Family History: Positive: Cardiac Disease, Hypertension, Other - positive anxiety to mother and sister Negative: Diabetes Family History: anxiety, COPD - Social History Occupation: Unemployed Lives: Alone Alcohol Use: None Substance Use Type: Prescribed Substance Use Comment - Amount & Last Used: hydrocodone Smoking Status (MU): Never Smoked Tobacco Have You Smoked in the Last Year: No - Immunization History Most Recent Influenza Vaccination: season Physical Exam - Summary Physical Exam Summary: GENERAL: NAD. WDWN. No pain distress. SKIN: Right forearm with 2mm flea bite and superficial excoriation. Mild surround edema and TTP. No streaking, drainage, or bleeding. Left forearm with scant similar appearing lesions. HEENT: Head: AT/NC Eyes: EOM intact. Conjunctiva clear without inflammation or discharge. Ears: Hearing grossly normal. TMs intact, no bulging, erythema, or edema. Nose: Nasal mucosa pink and moist. NTTP maxillary and frontal sinus. Throat: Posterior oropharynx without exudates, erythema, or tonsillar enlargement. Uvula midline. NECK: Supple. Nontender. No lymphadenopathy. CHEST: CTAB. No r/r/w. No accessory muscle use. Breathing comfortably and in no distress. CV: RRR. Without m/r/g. Pulses intact. Cap refill <2seconds NEURO: Alert. PSYCH: Age appropriate behavior. Triage Information Reviewed: Yes Vital Signs: Vital Signs: Temp Pulse Resp BP Pulse Ox 97.6 F 96 18 132/89 96 07/26/18 09:47 07/26/18 09:47 07/26/18 09:47 07/26/18 09:47 07/26/18 09:47 Vital Signs Reviewed: Yes Course/Dx - Course Course Of Treatment: Discussed that these areas could be treated with topical antibiotics. Pt became tearful and is requesting treatment for "internal fleas" as she believes she has swallowed live fleas and eggs/larva in her drinks on accident and is afraid she may have a tapeworm. I discussed with her that an oral antiparasitic at this time is not indicated as she has no other symptoms other than mild scant excoriated flea bites. Will rx for bactrim, mupirocin, and permethrin. F/u with PCP if she develops new or worsening symptoms. - Diagnoses Provider Diagnoses: Flea bites. Open wound right forearm Discharge - Sign-Out/Discharge Documenting (check all that apply): Patient Departure All imaging exams completed and their final reports reviewed: No Studies - Discharge Plan Condition: Stable Disposition: HOME Prescriptions: Mupirocin 2% CREAM* [Bactroban 2% CREAM*] 1 applic TOPICAL BID #1 tube Permethrin 1% LOTION* [Nix 1% LOTION*] 1 applic TOPICAL SEE INSTRUCTIONS #1 btl Sulfamethox/Trimethoprim DS* [Bactrim DS 800/160 TAB*] 1 tab PO BID #14 tab Patient Education Materials: Insect Bite or Sting (ED) Referrals: Linn Hui MD [Primary Care Provider] - Additional Instructions: If you develop a fever, shortness of breath, chest pain, new or worsening symptoms - please call your PCP or go to the ED. - Billing Disposition and Condition Condition: STABLE Disposition: Home
[2018-07-26 09:53] VITALS: BP 132/89
== END 2018-07-26 10:43 | disposition home or self-care (01) ==
LOC: UCEAST 09:40
DX: S51.851A Open bite of right forearm, initial encounter (principal); Z88.6 Allergy status to analgesic agent; Z88.8 Allergy status to other drugs, medicaments and biological substances; Z88.1 Allergy status to other antibiotic agents; Z91.018 Allergy to other foods; W57.XXXA Bitten or stung by nonvenomous insect and other nonvenomous arthropods, initial encounter; Y92.9 Unspecified place or not applicable
CPT/HCPCS: 99212; G0463

== ENCOUNTER 2018-07-27 14:53 | Emergency (ER) | payer MEDICARE ==
[2018-07-27 15:10] VITALS: BP 146/90
--- NOTE | 2018-07-27 15:32 | UC ---
Skin Complaint HPI - HPI Summary HPI Summary: 57 yo female with flea bites to both wrists excoriated and concerns of infection started on bactrim DS yesterday worse no fever hx MRSA - History of Current Complaint Chief Complaint: UCDizziness Time Seen by Provider: 07/27/18 15:17 Stated Complaint: DIZZY,RASH Hx Obtained From: Patient Hx Last Menstrual Period: HYSTERECTOMY Onset/Duration: Sudden Onset, Lasting Days Timing: Constant Onset Severity: Mild Current Severity: Mild Pain Intensity: 4 Location: Discrete Character: Swelling, Pruritus, Pain, Redness Aggravating Factor(s): Touch Alleviating Factor(s): Heat - Allergy/Home Medications Allergies/Adverse Reactions: Allergies Allergy/AdvReac Type Severity Reaction Status Date / Time guava Allergy Intermediate Hives Verified 07/27/18 15:10 aripiprazole [From Abilify] Allergy Dizziness Verified 07/27/18 15:10 aspirin Allergy Bleeding Verified 07/27/18 15:10 bupropion [From Wellbutrin] Allergy Hallucinati Verified 07/27/18 15:10 ons erythromycin base Allergy Diarrhea Verified 07/27/18 15:10 levofloxacin [From Levaquin] Allergy Joint Pain Verified 07/27/18 15:10 midazolam [From Versed] Allergy See Comment Verified 07/27/18 15:10 neomycin Allergy Hives Verified 07/27/18 15:10 NSAIDS (Non-Steroidal Allergy Bleeding Verified 07/27/18 15:10 Anti-Inflamma pepper (genus Capsicum) Allergy Difficulty Verified 07/27/18 15:10 [pepper] Breathing pepper Allergy Hives/Diff. Uncoded 07/27/18 15:10 Breathing/I tching Review of Systems All Other Systems Reviewed And Are Negative: Yes Constitutional: Positive: Negative Skin: Positive: Rash Eyes: Positive: Negative ENT: Positive: Negative Respiratory: Positive: Negative Cardiovascular: Positive: Negative Gastrointestinal: Positive: Negative Genitourinary: Positive: Negative Motor: Positive: Negative Neurovascular: Positive: Negative Musculoskeletal: Positive: Negative Neurological: Positive: Negative Psychological: Positive: Negative Is Patient Immunocompromised?: Yes PMH/Surg Hx/FS Hx/Imm Hx Previously Healthy: Yes Other History Of: Negative For: Anticoagulant Therapy - Surgical History Surgical History: Yes Surgery Procedure, Year, and Place: 2006 Hysterectomy. 2-LAPROSCOPIC- ENDOMETRIOSIS. TONSILECTOMY-1969 - Family History Known Family History: Positive: Cardiac Disease, Hypertension, Other - positive anxiety to mother and sister Negative: Diabetes Family History: anxiety, COPD - Social History Alcohol Use: None Substance Use Type: Prescribed Substance Use Comment - Amount & Last Used: hydrocodone Smoking Status (MU): Never Smoked Tobacco Have You Smoked in the Last Year: No - Immunization History Most Recent Influenza Vaccination: season Physical Exam Triage Information Reviewed: Yes Appearance: Well-Appearing, No Pain Distress, Well-Nourished Vital Signs: Initial Vital Signs Temp 97.4 F 07/27/18 15:05 Pulse 95 07/27/18 15:05 Resp 18 07/27/18 15:05 BP 146/90 07/27/18 15:05 Pulse Ox 98 07/27/18 15:05 Vital Signs Reviewed: Yes Eyes: Positive: Conjunctiva Clear ENT: Positive: Hearing grossly normal. Negative: Nasal congestion, Nasal drainage, Tonsillar exudate, Trismus, Hoarse voice Neck: Positive: Supple, Nontender, No Lymphadenopathy Respiratory: Positive: Lungs clear, Normal breath sounds, No respiratory distress, No accessory muscle use Cardiovascular: Positive: RRR, No Murmur Neurological: Positive: Alert Psychological Exam: Normal Skin Exam: Other - flea bites dorsum of both wrists...now exoriated ulcers R>L, swollen and red, no streaks Course/Dx - Diagnoses Provider Diagnoses: infected flea bites (bilateral wrists) Discharge - Sign-Out/Discharge Documenting (check all that apply): Patient Departure All imaging exams completed and their final reports reviewed: Yes - Discharge Plan Condition: Critical Disposition: HOME Referrals: Linn Hui MD [Primary Care Provider] - - Billing Disposition and Condition Condition: CRITICAL Disposition: Home
--- NOTE | 2018-07-28 07:31 | ED ---
Progress - Progress Note Progress Note: Lab report reviewed today: Preliminary wound Gram stain positive for 3+ epithelial cells, 1+ neutrophils, no organisms seen Culture pending Patient on Bactrim DS No change in plan. Discharge - Sign-Out/Discharge Documenting (check all that apply): Post-Discharge Follow Up All imaging exams completed and their final reports reviewed: Yes - Discharge Plan Condition: Critical Disposition: HOME Prescriptions: DOXYcycline CAP(*) [DOXYcycline 100MG CAP(*)] 100 mg PO BID #14 cap Patient Education Materials: Insect Bite or Sting (ED), Warm Compress or Soak ( ED) Referrals: Linn Hui MD [Primary Care Provider] - 5 Days (if not better) - Billing Disposition and Condition Condition: CRITICAL Disposition: Home
== END 2018-07-27 15:51 | disposition home or self-care (01) ==
LOC: UCEAST 14:53
DX: S60.861A Insect bite (nonvenomous) of right wrist, initial encounter (principal); L08.9 Local infection of the skin and subcutaneous tissue, unspecified; Z88.1 Allergy status to other antibiotic agents; Z88.6 Allergy status to analgesic agent; Z91.018 Allergy to other foods; Z88.5 Allergy status to narcotic agent; W57.XXXA Bitten or stung by nonvenomous insect and other nonvenomous arthropods, initial encounter; Y92.9 Unspecified place or not applicable
CPT/HCPCS: 87070; 87205; 99212; G0463

== ENCOUNTER 2018-08-02 14:28 | Emergency (ER) | payer MEDICARE ==
[2018-08-02 15:03] VITALS: BP 127/79
--- NOTE | 2018-08-02 16:25 | UC ---
Skin Complaint HPI - HPI Summary HPI Summary: Pt presents with c/o of concern of having skin and clothing infestation with fleas. Pt has been seen here on 07/26 1nd 07/27. Pt was also seen by PCP anjali cagle. Pt was first started on bactrim, changed ot doxycycline, permethrin cream and instructions on wound care. Pt states that she sees fleas jumping out of her wound on her right distal posterior wrist and that she sees fleas jumping off of hers clothes. Pt also reports that she has multiple wounds on abdomen and in genitla area as well. Pt is concerned about having "blood stream infection" as she has had one in the past. - History of Current Complaint Chief Complaint: UCSkin Time Seen by Provider: 08/02/18 15:30 Stated Complaint: SKIN COMPLAINT Hx Obtained From: Patient Hx Last Menstrual Period: HYSTERECTOMY ?: No Onset/Duration: Sudden Onset, Still Present Skin Exposure Onset/Duration: Days Ago Timing: Constant Onset Severity: Mild Pain Intensity: 0 Location: Diffuse Character: Pruritus Alleviating Factor(s): Nothing Associated Signs & Symptoms: Positive: Rash, Tenderness Related History: Insect Bite/Sting - Allergy/Home Medications Allergies/Adverse Reactions: Allergies Allergy/AdvReac Type Severity Reaction Status Date / Time guava Allergy Intermediate Hives Verified 08/02/18 15:03 aripiprazole [From Abilify] Allergy Dizziness Verified 08/02/18 15:03 aspirin Allergy Bleeding Verified 08/02/18 15:03 bupropion [From Wellbutrin] Allergy Hallucinati Verified 08/02/18 15:03 ons erythromycin base Allergy Diarrhea Verified 08/02/18 15:03 levofloxacin [From Levaquin] Allergy Joint Pain Verified 08/02/18 15:03 midazolam [From Versed] Allergy See Comment Verified 08/02/18 15:03 neomycin Allergy Hives Verified 08/02/18 15:03 NSAIDS (Non-Steroidal Allergy Bleeding Verified 08/02/18 15:03 Anti-Inflamma pepper (genus Capsicum) Allergy Difficulty Verified 08/02/18 15:03 [pepper] Breathing pepper Allergy Hives/Diff. Uncoded 08/02/18 15:03 Breathing/I tching Review of Systems All Other Systems Reviewed And Are Negative: Yes Constitutional: Positive: Negative Skin: Positive: Rash, Other - "infected wounds" Eyes: Positive: Negative ENT: Positive: Negative Respiratory: Positive: Negative Cardiovascular: Positive: Negative Gastrointestinal: Positive: Negative Genitourinary: Positive: Negative Motor: Positive: Negative Neurovascular: Positive: Negative Musculoskeletal: Positive: Negative Neurological: Positive: Negative Psychological: Positive: Negative Is Patient Immunocompromised?: No PMH/Surg Hx/FS Hx/Imm Hx Previously Healthy: Yes Other History Of: Negative For: Anticoagulant Therapy - Surgical History Surgical History: Yes Surgery Procedure, Year, and Place: 2006 Hysterectomy. 2-LAPROSCOPIC- ENDOMETRIOSIS. TONSILECTOMY-1969 - Family History Known Family History: Positive: Cardiac Disease, Hypertension, Other - positive anxiety to mother and sister Negative: Diabetes Family History: anxiety, COPD - Social History Occupation: Retired Lives: Alone Alcohol Use: None Substance Use Type: Prescribed Substance Use Comment - Amount & Last Used: hydrocodone Smoking Status (MU): Never Smoked Tobacco Have You Smoked in the Last Year: No - Immunization History Most Recent Influenza Vaccination: season Physical Exam Triage Information Reviewed: Yes Appearance: Well-Appearing Vital Signs: Initial Vital Signs Temp 97.5 F 08/02/18 14:51 Pulse 109 08/02/18 14:51 Resp 18 08/02/18 14:51 BP 127/79 08/02/18 14:51 Pulse Ox 100 08/02/18 14:51 Vital Signs Reviewed: Yes Eye Exam: Normal ENT Exam: Normal Dental Exam: Normal Neck exam: Normal Respiratory Exam: Normal Cardiovascular Exam: Normal Abdominal Exam: Normal Musculoskeletal Exam: Normal Neurological Exam: Normal Psychological Exam: Normal Skin Exam: Other - dried scab ~ size of pencil eraser to distal right posterior wrist radial aspect. no erythema, no red streaking no purulent discahrge. No other wound were Course/Dx - Course Course Of Treatment: I discussed with the pt my findings of healing wound and no evidence of flea infestation. - Differential Diagnoses - Skin Complaint Differential Diagnoses: Scabies - Diagnoses Provider Diagnosis: Delusions of parasitosis Discharge - Sign-Out/Discharge Documenting (check all that apply): Patient Departure All imaging exams completed and their final reports reviewed: No Studies - Discharge Plan Condition: Stable Disposition: HOME Patient Education Materials: Acute Wound Care (ED) Referrals: Linn Hui MD [Primary Care Provider] - As Soon As Possible - Billing Disposition and Condition Condition: STABLE Disposition: Home
--- NOTE | 2018-08-02 22:10 | UC ---
- Progress Note Progress Note: Patient Name: SELWYN MEADE Medical Record#: [id number] Ordering Physician: Erin Monk NP Acct.#: [id number] : 1960 Age: 57 Sex: F Location: [facility] Exam Date: 08/02/18 1558 ADM Status: REG ER Order Information: FOREARM RIGHT 2 VWS Accession Number: [id number] CPT: 27773 Indication: Right forearm pain. 2 views of the right forearm demonstrates no fracture. No other bone or joint abnormality is identified. IMPRESSION: No fracture of the right forearm is noted. <Electronically signed by Angela Gardner MD in OV> 08/02/181628 Dictated By: Angela Gardner MD Dictated Date/Time: 08/02/181628 Transcribed Date/Time: 08/02/181627 Copy to: CC:Linn Hui MD; Erin Monk BUDGET ANALYST; Cresencio Tian MD Imaging - [facility] - [facility] [place] [address] [address] ph ([phone]) ph ([phone]) ph ([phone]) This report is only to be considered final once signed by the Provider(s) as displayed in the "<Electronically Signed by >" field (s). Absence of a signature indicates the report is in a draft status and still needs to be finalized. In the event this document was created by someone other than the signing Provider, the individual initiating the document will be listed in the "Entered by:" or "Dictated by:" tavarez. 1 of 1 Course/Dx - Diagnoses Provider Diagnoses: Delusions of parasitosis Discharge - Sign-Out/Discharge Documenting (check all that apply): Post-Discharge Follow Up All imaging exams completed and their final reports reviewed: Yes - Discharge Plan Condition: Stable Disposition: HOME Patient Education Materials: Acute Wound Care (ED) Referrals: Linn Hui MD [Primary Care Provider] - As Soon As Possible - Billing Disposition and Condition Condition: STABLE Disposition: Home
== END 2018-08-02 17:05 | disposition home or self-care (01) ==
LOC: UCEAST 14:28
DX: F22 Delusional disorders (principal); Z88.6 Allergy status to analgesic agent; Z88.8 Allergy status to other drugs, medicaments and biological substances; Z88.1 Allergy status to other antibiotic agents
CPT/HCPCS: 99211; G0463

== ENCOUNTER 2019-08-23 10:32 | Day surgery (SDC) | payer MEDICARE ==
[~2019-08-23 10:32] MED LIST: Buffered Lidocaine 1% SYRIN* 1 ML/SYRINGE INTRADERM ONE; Lactated Ringers 1000 ML Bag* 1,000 ML IV SCH
[2019-08-23] MEDS ORDERED: Buffered Lidocaine 1% SYRIN* 1 ML/SYRINGE INTRADERM ONE (11:27)
[2019-08-23] MEDS ORDERED: Rocuronium* 10 MG/ML VIAL ONE (12:33)
[2019-08-23] MEDS ORDERED: fentaNYL* 50 MCG/ML 2 ML VIAL (100 MCG VIAL) ONE (12:33)
[2019-08-23] MEDS ORDERED: Propofol* 10 MG/ML 20 ML BTL ONE (12:33)
[2019-08-23] MEDS ORDERED: Dexamethasone IV* 4 MG/ML 1 ML (4 MG) ONE (13:10)
[2019-08-23] MEDS ORDERED: Glycopyrrolate IV* 0.2 MG/ML 1 ML VIAL ONE (13:51)
[2019-08-23] MEDS ORDERED: Neostigmine Methylsulfate* 3 MG/3 ML SYRINGE ONE (13:52)
[2019-08-23 15:00] VITALS: BP 123/77
[2019-08-23] MEDS ORDERED: Ondansetron INJ* 2 MG/ML VIAL IV PRN (15:29)
[2019-08-23] MEDS ORDERED: fentaNYL* 50 MCG/ML 2 ML VIAL (100 MCG VIAL) IV PRN (15:29)
[2019-08-23] MEDS ORDERED: Naloxone* 0.4 MG/ML 1 ML VIAL IV PRN (15:29)
--- NOTE | 2019-08-24 19:07 | PRO ---
DATE: 08/23/19 [facility] REFERRING PHYSICIAN: Linn Hui * PROCEDURES: Upper gastrointestinal endoscopy and biopsy gastric antral erosions , CLOtest, and biopsy third portion of duodenum; colonoscopy and ileoscopy. 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 She has a complex past medical history and is on multiple medications including Atarax, Elavil, hydrocodone, Klonopin, Lamictal, Pristiq, Robaxin, and Topamax for anxiety, chronic back pain, migraines as a partial list of diagnoses. Diarrhea has been treated in the past with alosetron (primary physician at [facility]) and she has had a normal celiac antibody screen. She has a history of gastrointestinal bleeding in 2007 presenting with melena with BUN up while taking Ibuprofen. The workup was indeterminate including an inpatient upper endoscopy and then several weeks later outpatient colonoscopy where the cecum was reached with difficulty and apparently no views of the ileum were obtainable. In 2013 because of rectal bleeding and numerous other complaints, she had a colonoscopy in the operating room at [facility] where internal hemorrhoids were seen. Records available refer to the procedure as colonoscopy. The status of the ileum is thus uncertain at this time. Most recent labs in June 2019 showed hemoglobin of 15.1, and it is notable that her hemoglobin has been normal in a dozen specimens since November 2010 once the effect of the GI bleeding in 2007 was reversed. Her MCV has been normal above 87 throughout. Sed rate has been normal under 15. Five specimens since June 2012 with minimal elevations of CRP, maximum 11.47 in June 2019. Albumin has been normal, most recently 4.4 [address] 3[address] abdomen and pelvis September 2018 did not show any small bowel or large bowel abnormalities and no mesenteric abnormality. No abdominal imaging has been done since at least 2008. There is no small bowel follow through in the hospital data base. ENDOSCOPIST: Dr. Lorenzo. MEDICATIONS: Anesthesia per Dr. Maya. FINDINGS: She is a healthy-appearing, middle-aged woman, in no overt distress with purple tinted hair. The skin is unremarkable. She was positioned left side down with anesthesia induced. EGD: Larynx - tube in place. Esophagus - easily entered and mucosa normal with some hyperkeratotic desiccated appearance from 28 to 30 and then normal mucosa down to the EG junction at 35. Stomach - normal mucosa in the cardia, fundus, body. The antrum has some minimal superficial stepping stone erosions that were nonspecific, mild, without any bleeding. Duodenum - pylorus, bulb, and second through fourth portions appear normal. Given the context of weight loss, biopsies were obtained of the third portion of the duodenum and from the erosions and the CLOtest. COLONOSCOPY: Initial views show an excellent prep and normal mucosa. Colonoscope was passed fairly easily through the sigmoid. There was some redundancy and floppiness and passage was difficult with hand pressure externally helpful. The cecum was reached. The ileocecal valve was prominent, and from its orifice, a small 3mm, round, scarring fibroma like nodule was protruding and then regressed The opening to the ileocecal valve appeared somewhat stenotic, and given the priority of evaluating this, it was intubated eventually. There appeared to be some scarring and erosions, possibly some minimal ulcers for a few centimeters and then more normal mucosa above that. Further insertion was not possible. Orientation for biopsies was not possible. There clearly was stenotic, irregular area for about 3-4 cm. Some distortion and asymmetry was evident from the colonic view down the right colon, but there were no inflammatory changes in colonic mucosa. During slow withdrawal, there were no additional findings. Rectal retroflexion was not possible. Colon mucosa throughout the rest of the colon was normal. IMPRESSION: 1. Mild prepyloric gastritis. 2. Normal duodenum. 3. 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 4. Redundant colon. 5. Chronic diarrhea - longstanding and without any nutritional deterioration over at least 10 years. Cause is unclear. The contribution of bile salt dysregulation from the ileocecal stenosis is a consideration. That stenosis would appear to be more likely due to NSAID toxicity than an inflammatory bowel disease. A trial of Questran could be considered. Addendum: Clotest negative; duodenal Bx normal; antral Bx "chemical gastropathy " [id number] #: [id number] [facility]
== END 2019-08-23 15:10 | disposition home or self-care (01) ==
LOC: OR 10:32
PROVIDERS: ATTEND Internal Medicine Gastroenterology
DX: K29.60 Other gastritis without bleeding (principal); K52.9 Noninfective gastroenteritis and colitis, unspecified; R19.4 Change in bowel habit; R63.4 Abnormal weight loss; K63.89 Other specified diseases of intestine
CPT/HCPCS: 87077; 88305; 88342; J1100; J2704; J2710; J3010